=== PATIENT | male | born 1930 | race Caucasian/White ===

== ENCOUNTER 2016-10-04 07:03 | Emergency (ER) | payer MEDICARE ==
[2016-10-04 07:10] VITALS: RESP 18
[2016-10-04] MEDS ORDERED: ACETAMINOPHEN TAB 325 MG TAB PO STA (07:29)
[2016-10-04] MEDS ORDERED: MORPHINE SULFATE 2 MG/ML SYRINGE IVP ONE (07:35)
[2016-10-04] MEDS ORDERED: LABETALOL 5 MG/ML VIAL MDV IVP STA (07:36)
[2016-10-04] MEDS ORDERED: CARBIDOPA-LEVODOPA ER 50-200MG 1 EACH TABLET.ER PO STA (07:37)
[2016-10-04 08:14] LABS: Aty Lym Flag Slight; CH 31.9; CHCM 36.4; HCT 41.6 % (39.0-53.0); HDW 2.74; HGB 15.2 gm/dL (13.0-17.5); MCH 32.1 pg (25.0-35.0); MCHC 36.5 g/dL (31.0-37.0); MCV 87.9 fL (80.0-100.0); Mean Platelet Volume 8.7; RBC 4.73 m/uL (4.30-5.90); RDW 12.4 % (11.5-15.5); WBC 3.4 k/uL (3.8-10.6)
[2016-10-04 08:18] LABS: Anion Gap 10 mmol/L; Blood Urea Nitrogen 13 mg/dL (9-20); Calcium 9.3 mg/dL (8.4-10.2); Carbon Dioxide 25 mmol/L (22-30); Chloride 105 mmol/L (98-107); Glucose 292 mg/dL (74-99); Non-African American GFR(MDRD) >60 (>60 ml/min/1.73 sqM); Potassium 5.3 mmol/L (3.5-5.1); Sodium 140 mmol/L (137-145)
[2016-10-04 08:30] LABS: Add Differential Manual Differential
[2016-10-04 08:32] LABS: Nucleated Red Blood Cells 0 /100 WBC (0-0); Polychromasia Present; Total Cells Counted 100
[2016-10-04] MEDS ORDERED: KETOROLAC 30 MG/ML 1 ML VIAL IVP STA (08:56)
--- NOTE | 2016-10-04 09:09 | ED ---
Eye Problem HPI - General Chief complaint: Eye Problems Stated complaint: rt eye pain Time Seen by Provider: 10/04/16 07:08 Source: EMS Mode of arrival: EMS Limitations: no limitations - History of Present Illness Initial comments: Complaining about the right leg pain, it started last night he denies any trauma or any fall or any injury to the eye and a chance to discuss that with his son and he said he has very similar complaints 2 years ago and he seen secondary set up man or secondary set up man thought it was as migraines. Patient has seen secondary set up man a week ago. His vision is okay there is no deficits in the vision. His complaining about pain on the right temporal area him in review of system is unremarkable otherwise - Related Data Home Medications Medication Instructions Recorded Confirmed Insulin Glargine [Lantus] 28 unit SQ HS@1800 09/14/13 10/04/16 Methylphenidate HCl [Ritalin] 40 mg PO AC-BID 09/14/13 10/04/16 metFORMIN HCL [Glucophage] 1,000 mg PO AC-BRKFST 09/14/13 10/04/16 Omeprazole [PriLOSEC] 20 mg PO AC-LUNCH 12/17/15 10/04/16 Silodosin [Rapaflo] 8 mg PO AC-SUPPER 12/17/15 10/04/16 Atenolol 25 mg PO W/LUNCH 10/04/16 10/04/16 Carbidopa-Levodopa ER 50-200Mg 1 tab PO BID 10/04/16 10/04/16 [Sinemet ER 50-200] Isosorbide Mononitrate ER [Imdur] 60 mg PO DAILY 10/04/16 10/04/16 glipiZIDE [Glucotrol] 2.5 mg PO AC-BID 10/04/16 10/04/16 Allergies Allergy/AdvReac Type Severity Reaction Status Date / Time Penicillins Allergy Unknown Verified 10/04/16 10:01 Review of Systems ROS Statement: Those systems with pertinent positive or pertinent negative responses have been documented in the HPI. ROS Other: All systems not noted in ROS Statement are negative. 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,SKIN CANCER, STOAMCH ULCERS 40 YERS AGO History of Any Multi-Drug Resistant Organisms: None Reported Past Surgical History: Adenoidectomy, Appendectomy, Coronary Bypass/CABG, Heart Catheterization With Stent, Orthopedic Surgery, Tonsillectomy Additional Past Surgical History / Comment(s): RT KNEE SX ON CATILAGE, TAY CATARACTS Past Anesthesia/Blood Transfusion Reactions: No Reported Reaction Date of Last Stent Placement:: 2005 Past Psychological History: No Psychological Hx Reported Additional Psychological History / Comment(s): PT LIVES AT [facility], GETS AROUND WITH A 4 PORNG CANE Smoking Status: Former smoker Past Alcohol Use History: Occasional Additional Past Alcohol Use History / Comment(s): STARTED SMOKING AROUND AGE 13 , QUIT IN THE S Past Drug Use History: None Reported - Past Family History Father Family Medical History: Cancer, CVA/TIA Additional Family Medical History / Comment(s): SERIES OF STROKES. AT AGE 95 Mother Family Medical History: Congestive Heart Failure (CHF) Additional Family Medical History / Comment(s): AT AGE 95 CHF General Exam - General Exam Comments Initial Comments: General: The patient is awake and alert, in no distress, he was anxious on arrival Skin: Skin is warm and dry and no rashes or lesions are noted. Eye: Pupils are equal, round and reactive to light, extra-ocular movements are intact; there is normal conjunctiva bilaterally. He has some spots on the cornea those are bilateral these are quite symmetrical Ears, nose, mouth and throat: He is tender over the right temporal area Neck: The neck is supple, there is no tenderness or JVD. Cardiovascular: There is a regular rate and rhythm. No murmur, rub or gallop is appreciated. Respiratory: To auscultation bilateral, no wheezing no rhonchi no distress respiratory osborn noticed Gastrointestinal: Soft, non-distended, non-tender abdomen without masses or organomegaly noted. There is no rebound or guarding present. Bowel sounds are unremarkable. Back: There is no tenderness to palpation in the midline. There is no obvious deformity. Musculoskeletal: Normal ROM, no tenderness, There is no pedal edema. There is no calf tenderness or swelling. No cords were appreciated. Neurological: CN II-XII intact, Cranial nerves III through XII are intact. There are no obvious motor or sensory deficits. Coordination appears grossly intact. Speech is normal. Psychiatric: Cooperative, appropriate mood & affect, normal judgment. Limitations: no limitations Course Vital Signs 10/04/16 10/04/16 10/04/16 07:06 08:10 08:53 Temperature 97.4 F L Pulse Rate 68 60 60 Respiratory 18 18 18 Rate Blood Pressure 227/94 103/59 136/61 O2 Sat by Pulse 99 96 97 Oximetry 10/04/16 10:00 Temperature Pulse Rate 62 Respiratory 18 Rate Blood Pressure 146/65 O2 Sat by Pulse [address] [facility], I spoke with Dr. Nela today in Dr. Palomo agreed to see him 8:30 AM tomorrow morning - Reevaluation(s) Reevaluation #1: 10/04/16 10:47 Blood work and imaging was negative, I informed patient his son about it and now I spoke with the Dr. Jansen though he is not communication signals intelligence today. Patient has seen him in the past and he is his secondary set up man he agreed to see him 8:30 tomorrow morning that B Wednesday and patient is aware and agrees to see him Reevaluation #2: 10/04/16 09:42 Intraocular pressure in the right eye was 18 Medical Decision Making - Lab Data Result diagrams: 10/04/16 07:42 10/04/16 07:42 Lab Results 10/04/16 10/04/16 10/04/16 Range/Units 07:42 07:42 09:55 WBC 3.4 L (3.8-10.6) k/uL RBC 4.73 (4.30-5.90) m/uL Hgb 15.2 (13.0-17.5) gm/dL Hct 41.6 (39.0-53.0) % MCV 87.9 (80.0-100.0) fL MCH 32.1 (25.0-35.0) pg MCHC 36.5 (31.0-37.0) g/dL RDW 12.4 (11.5-15.5) % Plt Count 141 L (150-450) k/uL Neutrophils % (Manual) 59.0 % Lymphocytes % (Manual) 23.0 % Monocytes % (Manual) 18.0 % Neutrophils # (Manual) 2.0 (1.3-7.7) k/uL Lymphocytes # (Manual) 0.8 L (1.0-4.8) k/uL Monocytes # (Manual) 0.6 (0-1.0) k/uL Nucleated RBCs 0 (0-0) /100 WBC Polychromasia Present ESR 8 (0-15) mm/hr Sodium 140 (137-145) mmol/L Potassium 5.3 H (3.5-5.1) mmol/L Chloride 105 (98-107) mmol/L Carbon Dioxide 25 (22-30) mmol/L Anion Gap 10 mmol/L BUN 13 (9-20) mg/dL Creatinine 0.69 (0.66-1.25) mg/dL Est GFR (MDRD) Af Amer >60 (>60 ml/min/1.73 sqM) Est GFR (MDRD) Non-Af >60 (>60 ml/min/1.73 sqM) Glucose 292 H (74-99) mg/dL Calcium 9.3 (8.4-10.2) mg/dL Disposition Clinical Impression: Pain in right eye Disposition: HOME SELF-CARE Condition: Fair Referrals: Espinoza Bartlett MD [Primary Care Provider] - 1-2 days Sunny Neal MD [STAFF PHYSICIAN] - 1-2 days
--- NOTE | 2016-10-04 09:12 | CT ---
EXAMINATION TYPE: CT brain wo con, CT orbits wo con DATE OF EXAM: 10/04/2016 HISTORY: Headache with severe pain right eye CT DLP: 978.20 (accession [id number]), 263.40 (accession [id number]) mGycm. Automated Exposure Control f or Dose Reduction was Utilized. TECHNIQUE: CT scan of the head and orbits are performed without contrast. COMPARISON: CT brain December 17, 2015. FINDINGS: There is no acute intracranial hemorrhage or midline shift identified. There is diffuse v entricular and sulcal prominence consistent with diffuse age-related cerebral atrophy. Degree of vent ricular dilatation is out of proportion to degree of sulcal effacement or normal pressure hydrocephal us is not excluded. Ventricular size is however noted not significantly worsened versus prior study. Prominent extra-axial fluid anterior left temporal region could reflect arachnoid cyst or asymmetric atrophy is stable. There is low-attenuation in the periventricular white matter consistent with chron ic small vessel ischemic change. The calvarium is intact. Some calcification of right lens is redemonstrated, suspect possible cataract. Orbital floors and wal ls are intact. The globes are intact bilaterally. Intraconal fat is preserved. Rectus muscles are sym metric and felt within normal limits. IMPRESSION: No acute intracranial hemorrhage or midline shift. There is moderate to severe diffuse age-related cerebral atrophy and chronic small vessel ischemic change redemonstrated. No significant new finding is seen to account for patient's symptoms.
[2016-10-04 10:59] VITALS: BP 145/70; PULSE 67
[2016-10-04 11:04] VITALS: TEMP 98.6
== END 2016-10-04 11:09 | disposition home or self-care (01) ==
LOC: EC 07:03
DX: H57.11 Ocular pain, right eye (principal); I10 Essential (primary) hypertension; I25.10 Atherosclerotic heart disease of native coronary artery without angina pectoris; E11.9 Type 2 diabetes mellitus without complications; K21.9 Gastro-esophageal reflux disease without esophagitis; Z87.891 Personal history of nicotine dependence; Z79.4 Long term (current) use of insulin; Z79.84 Long term (current) use of oral hypoglycemic drugs; Z79.899 Other long term (current) drug therapy; Z88.0 Allergy status to penicillin
CPT/HCPCS: 99284 ×2; 96374 ×2; 96375 ×3; 36415; 80048; 85652; 85025; 70450; 70480; J1885; J2270

== ENCOUNTER 2016-10-19 15:06 | Inpatient (IN) | payer MEDICARE ==
[2016-10-19] MEDS ORDERED: SODIUM CHLORIDE 0.9% 1,000 ML IV STA (15:11)
[2016-10-19] MEDS ORDERED: SODIUM CHLORIDE 0.9% 500 ML IV STA (15:11)
[2016-10-19] MEDS ORDERED: RX INFO: IV CONTRAST WAS GIVEN 1 EACH MISC MISCELLANE PRN ×2 (15:11→16:20)
[2016-10-19] MEDS ORDERED: ONDANSETRON 4 MG/2 ML VIAL IVP STA (15:11)
--- NOTE | 2016-10-19 15:13 | ED ---
General Adult HPI <Kemal Valerio - Last Filed: 10/19/16 18:07> - General Source: RN notes reviewed, old records reviewed <Juarez Best - Last Filed: 10/20/16 13:25> - General Stated complaint: bradycardia Time Seen by Provider: 10/19/16 15:11 - History of Present Illness Initial comments: This is a 78-year-old male the ER for evaluation. Patient coming in for evaluation of severe*distress, severe overall distress. Patient has significant heart history, presented to urgent care for nausea and vomiting and abdominal pain but more nausea today. No fever or chest pain. Patient was noted to be hypoxic and bradycardic with a low blood pressure per facility. Patient no syncopal event. Patient still complaining of abdominal pain and nausea. No recent sickness fevers nausea vomiting or diarrhea. (Juarez Best) - Related Data Home Medications Medication Instructions Recorded Confirmed Insulin Glargine [Lantus] 28 unit SQ HS@1800 09/14/13 10/19/16 Methylphenidate HCl [Ritalin] 40 mg PO AC-BID 09/14/13 10/19/16 metFORMIN HCL [Glucophage] 1,000 mg PO AC-BRKFST 09/14/13 10/19/16 Omeprazole [PriLOSEC] 20 mg PO AC-LUNCH 12/17/15 10/19/16 Silodosin [Rapaflo] 8 mg PO AC-SUPPER 12/17/15 10/19/16 Atenolol 25 mg PO W/LUNCH 10/04/16 10/19/16 Carbidopa-Levodopa ER 50-200Mg 1 tab PO BID 10/04/16 10/19/16 [Sinemet ER 50-200] Isosorbide Mononitrate ER [Imdur] 60 mg PO DAILY 10/04/16 10/19/16 glipiZIDE [Glucotrol] 2.5 mg PO AC-BID 10/04/16 10/19/16 Diclofenac 0.1% Ophth Soln 1 drop RIGHT EYE BID 10/19/16 10/19/16 [Voltaren 0.1% Ophth Soln] Lactulose [Constulose] 10 gm PO BID PRN 10/19/16 10/19/16 Latanoprost [Xalatan 0.005%] 1 drop RIGHT EYE HS 10/19/16 10/19/16 Linaclotide [Linzess] 145 mcg PO DAILY 10/19/16 10/19/16 Allergies Allergy/AdvReac Type Severity Reaction Status Date / Time Penicillins Allergy Unknown Verified 10/19/16 15:54 Review of Systems ROS Other: All systems not noted in ROS Statement are negative. <Kemal Valerio - Last Filed: 10/19/16 18:07> ROS Other: All systems not noted in ROS Statement are negative. <Juarez Best - Last Filed: 10/20/16 13:25> ROS Statement: Those systems with pertinent positive or pertinent negative responses have been documented in the HPI. 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,SKIN CANCER, STOAMCH ULCERS 40 YERS AGO History of Any Multi-Drug Resistant Organisms: None Reported Past Surgical History: Adenoidectomy, Appendectomy, Coronary Bypass/CABG, Heart Catheterization With Stent, Orthopedic Surgery, Tonsillectomy Additional Past Surgical History / Comment(s): RT KNEE SX ON CATILAGE, TAY CATARACTS Past Anesthesia/Blood Transfusion Reactions: No Reported Reaction Date of Last Stent Placement:: 2005 Past Psychological History: No Psychological Hx Reported Additional Psychological History / Comment(s): PT [facility], GETS AROUND WITH A 4 PORNG CANE Smoking Status: Former smoker Past Alcohol Use History: Occasional Additional Past Alcohol Use History / Comment(s): STARTED SMOKING AROUND AGE 13 , QUIT IN THE 1970'S Past Drug Use History: None Reported - Past Family History Father Family Medical History: Cancer, CVA/TIA Additional Family Medical History / Comment(s): SERIES OF STROKES. AT AGE 95 Mother Family Medical History: Congestive Heart Failure (CHF) Additional Family Medical History / Comment(s): AT AGE 95 CHF <Juarez Best - Last Filed: 10/20/16 13:25> General Exam General appearance: alert, anxious, lethargic, in distress, cachectic Head exam: Present: atraumatic, normocephalic, normal inspection Eye exam: Present: normal appearance, PERRL, EOMI. Absent: scleral icterus, conjunctival injection, periorbital swelling ENT exam: Present: normal exam, mucous membranes dry Neck exam: Present: normal inspection. Absent: tenderness, meningismus, lymphadenopathy Respiratory exam: Present: normal lung sounds bilaterally. Absent: respiratory distress, wheezes, rales, rhonchi, stridor Cardiovascular Exam: Present: normal rhythm, bradycardia, normal heart sounds. Absent: systolic murmur, diastolic murmur, rubs, gallop, clicks GI/Abdominal exam: Present: soft, normal bowel sounds. Absent: distended, tenderness, guarding, rebound, rigid Extremities exam: Present: normal inspection, full ROM, normal capillary refill. Absent: tenderness, pedal edema, joint swelling, calf tenderness Back exam: Present: normal inspection Neurological exam: Present: alert, oriented X3, CN II-XII intact Psychiatric exam: Present: normal affect, normal mood Skin exam: Present: warm, dry, intact, normal color. Absent: rash <Juarez Best - Last Filed: 10/20/16 13:25> Course <Kemal Valerio - Last Filed: 10/19/16 18:07> <Juarez Best - Last Filed: 10/20/16 13:25> Vital Signs 10/19/16 10/19/16 10/19/16 15:08 15:40 16:35 Temperature 97.4 F L Pulse Rate 67 79 89 Respiratory 18 18 14 Rate Blood Pressure 141/66 160/85 163/97 O2 Sat by Pulse 100 100 99 Oximetry 10/19/16 10/19/16 18:01 19:11 Temperature 96.8 F L Pulse Rate 112 H 106 H Respiratory 19 18 Rate Blood Pressure 134/70 171/86 O2 Sat by Pulse 100 100 Oximetry - Reevaluation(s) Reevaluation #1: 10/19/16 15:51 Patient had significant bowel movement, resolution of nausea resolution of abdominal pain and resolution of vomiting (Juarez Best) EKG Findings - EKG Comments: EKG Findings:: EKG shows sinus rhythm at 64, OH 180, QRS 116, QTc 476 <Juarez Best - Last Filed: 06/27/17 13:25> Medical Decision Making - Lab Data Result diagrams: 10/19/16 15:15 10/19/16 15:15 <Kemal Valerio - Last Filed: 10/19/16 18:07> - Lab Data Result diagrams: 10/20/16 06:55 10/20/16 06:55 - Radiology Data Radiology results: report reviewed (CTA chest CT abdomen and pelvis negative for PE positive for possible mass in long, severe constipation), image reviewed <Juarez Best - Last Filed: 10/20/16 13:25> - Medical Decision Making 88 mailed a year figuration near syncopal event, severe constipation, dehydration lactic acidosis. Patient be admitted for further evaluation and management, (Juarez Best) - Lab Data Lab Results 10/19/16 10/19/16 10/19/16 Range/Units 15:12 15:15 15:15 WBC 5.3 (3.8-10.6) k/uL RBC 4.49 (4.30-5.90) m/uL Hgb 14.7 (13.0-17.5) gm/dL Hct 41.3 (39.0-53.0) % MCV 92.0 (80.0-100.0) fL MCH 32.7 (25.0-35.0) pg MCHC 35.6 (31.0-37.0) g/dL RDW 12.4 (11.5-15.5) % Plt Count 225 (150-450) k/uL Neutrophils % 56 % Lymphocytes % 25 % Monocytes % 13 % Eosinophils % 1 % Basophils % 0 % Neutrophils # 3.0 (1.3-7.7) k/uL Lymphocytes # 1.3 (1.0-4.8) k/uL Monocytes # 0.7 (0-1.0) k/uL Eosinophils # 0.0 (0-0.7) k/uL Basophils # 0.0 (0-0.2) k/uL Manual Slide Review Performed Reactive Lymphocytes Present Large Platelets Present Ovalocytes Present Fragmented RBCs Present PT (9.0-12.0) sec INR (<1.1) APTT (22.0-30.0) sec D-Dimer (<0.60) mg/L FEU Sodium (137-145) mmol/L Potassium (3.5-5.1) mmol/L Chloride (98-107) mmol/L Carbon Dioxide (22-30) mmol/L Anion Gap mmol/L BUN (9-20) mg/dL Creatinine (0.66-1.25) mg/dL Est GFR (MDRD) Af Amer (>60 ml/min/1.73 sqM) Est GFR (MDRD) Non-Af (>60 ml/min/1.73 sqM) Glucose (74-99) mg/dL POC Glucose (mg/dL) 344 H (75-99) mg/dL POC Glu Icu Manager ID Ruel Frank Plasma Lactic Acid Sudarshan (0.7-2.0) mmol/L Calcium (8.4-10.2) mg/dL Phosphorus (2.5-4.5) mg/dL Magnesium (1.6-2.3) mg/dL Total Bilirubin (0.2-1.3) mg/dL AST (17-59) U/L ALT (21-72) U/L Alkaline Phosphatase (38-126) U/L Total Creatine Kinase 40 L (55-170) U/L CK-MB (CK-2) 1.2 (0.0-2.4) ng/mL CK-MB (CK-2) Rel Index 3.0 Troponin I <0.012 (0.000-0.034) ng/mL NT-Pro-B Natriuret Pep pg/mL Total Protein (6.3-8.2) g/dL Albumin (3.5-5.0) g/dL Urine Color Urine Appearance (Clear) Urine pH (5.0-8.0) Ur Specific [place] (1.001-1.035) Urine Protein (Negative) Urine Glucose (UA) (Negative) Urine Ketones (Negative) Urine Blood (Negative) Urine Nitrite (Negative) Urine Bilirubin (Negative) Urine Urobilinogen (<2.0) mg/dL Ur Leukocyte Esterase (Negative) 10/19/16 10/19/16 10/19/16 Range/Units 15:15 15:15 15:15 WBC (3.8-10.6) k/uL RBC (4.30-5.90) m/uL Hgb (13.0-17.5) gm/dL Hct (39.0-53.0) % MCV (80.0-100.0) fL MCH (25.0-35.0) pg MCHC (31.0-37.0) g/dL RDW (11.5-15.5) % Plt Count (150-450) k/uL Neutrophils % % Lymphocytes % % Monocytes % % Eosinophils % % Basophils % % Neutrophils # (1.3-7.7) k/uL Lymphocytes # (1.0-4.8) k/uL Monocytes # (0-1.0) k/uL Eosinophils # (0-0.7) k/uL Basophils # (0-0.2) k/uL Manual Slide Review Reactive Lymphocytes Large Platelets Ovalocytes Fragmented RBCs PT 11.3 (9.0-12.0) sec INR 1.1 (<1.1) APTT 21.3 L (22.0-30.0) sec D-Dimer 0.98 H (<0.60) mg/L FEU Sodium 140 (137-145) mmol/L Potassium 4.4 (3.5-5.1) mmol/L Chloride 103 (98-107) mmol/L Carbon Dioxide 26 (22-30) mmol/L Anion Gap 11 mmol/L BUN 21 H (9-20) mg/dL Creatinine 0.99 (0.66-1.25) mg/dL Est GFR (MDRD) Af Amer >60 (>60 ml/min/1.73 sqM) Est GFR (MDRD) Non-Af >60 (>60 ml/min/1.73 sqM) Glucose 359 H (74-99) mg/dL POC Glucose (mg/dL) (75-99) mg/dL POC Glu Icu Manager ID Plasma Lactic Acid Sudarshan 2.7 H* (0.7-2.0) mmol/L Calcium 9.0 (8.4-10.2) mg/dL Phosphorus 3.4 (2.5-4.5) mg/dL Magnesium 1.7 (1.6-2.3) mg/dL Total Bilirubin 0.8 (0.2-1.3) mg/dL AST 23 (17-59) U/L ALT 24 (21-72) U/L Alkaline Phosphatase 82 (38-126) U/L Total Creatine Kinase (55-170) U/L CK-MB (CK-2) (0.0-2.4) ng/mL CK-MB (CK-2) Rel Index Troponin I (0.000-0.034) ng/mL NT-Pro-B Natriuret Pep pg/mL Total Protein 6.3 (6.3-8.2) g/dL Albumin 3.8 (3.5-5.0) g/dL Urine Color Urine Appearance (Clear) Urine pH (5.0-8.0) Ur Specific [place] (1.001-1.035) Urine Protein (Negative) Urine Glucose (UA) (Negative) Urine Ketones (Negative) Urine Blood (Negative) Urine Nitrite (Negative) Urine Bilirubin (Negative) Urine Urobilinogen (<2.0) mg/dL Ur Leukocyte Esterase (Negative) 10/19/16 10/19/16 Range/Units 15:15 16:30 WBC (3.8-10.6) k/uL RBC (4.30-5.90) m/uL Hgb (13.0-17.5) gm/dL Hct (39.0-53.0) % MCV (80.0-100.0) fL MCH (25.0-35.0) pg MCHC (31.0-37.0) g/dL RDW (11.5-15.5) % Plt Count (150-450) k/uL Neutrophils % % Lymphocytes % % Monocytes % % Eosinophils % % Basophils % % Neutrophils # (1.3-7.7) k/uL Lymphocytes # (1.0-4.8) k/uL Monocytes # (0-1.0) k/uL Eosinophils # (0-0.7) k/uL Basophils # (0-0.2) k/uL Manual Slide Review Reactive Lymphocytes Large Platelets Ovalocytes Fragmented RBCs PT (9.0-12.0) sec INR (<1.1) APTT (22.0-30.0) sec D-Dimer (<0.60) mg/L FEU Sodium (137-145) mmol/L Potassium (3.5-5.1) mmol/L Chloride (98-107) mmol/L Carbon Dioxide (22-30) mmol/L Anion Gap mmol/L BUN (9-20) mg/dL Creatinine (0.66-1.25) mg/dL Est GFR (MDRD) Af Amer (>60 ml/min/1.73 sqM) Est GFR (MDRD) Non-Af (>60 ml/min/1.73 sqM) Glucose (74-99) mg/dL POC Glucose (mg/dL) (75-99) mg/dL POC Glu Icu Manager ID Plasma Lactic Acid Sudarshan (0.7-2.0) mmol/L Calcium (8.4-10.2) mg/dL Phosphorus (2.5-4.5) mg/dL Magnesium (1.6-2.3) mg/dL Total Bilirubin (0.2-1.3) mg/dL AST (17-59) U/L ALT (21-72) U/L Alkaline Phosphatase (38-126) U/L Total Creatine Kinase (55-170) U/L CK-MB (CK-2) (0.0-2.4) ng/mL CK-MB (CK-2) Rel Index Troponin I (0.000-0.034) ng/mL NT-Pro-B Natriuret Pep 279 pg/mL Total Protein (6.3-8.2) g/dL Albumin (3.5-5.0) g/dL Urine Color Yellow Urine Appearance Clear (Clear) Urine pH 6.5 (5.0-8.0) Ur Specific [place] 1.013 (1.001-1.035) Urine Protein Trace H (Negative) Urine Glucose (UA) 4+ H (Negative) Urine Ketones Negative (Negative) Urine Blood Negative (Negative) Urine Nitrite Negative (Negative) Urine Bilirubin Negative (Negative) Urine Urobilinogen <2.0 (<2.0) mg/dL Ur Leukocyte Esterase Negative (Negative) Critical Care Time Critical Care Time: Yes Total Critical Care Time: 31 <Juarez Best - Last Filed: 10/20/16 13:25> Disposition <Kemal Valerio - Last Filed: 10/19/16 18:07> <Juarez Best - Last Filed: 10/20/16 13:25> Clinical Impression: Near syncope, Lactic acidosis, Constipation, Hyperglycemia Disposition: [facility] Condition: Fair
[2016-10-19 15:21] LABS: Glucose,Whole Blood 344 mg/dL (75-99)
--- NOTE | 2016-10-19 15:33 | XR ---
EXAMINATION TYPE: XR chest 1V portable DATE OF EXAM: 10/19/2016 COMPARISON: December 17, 2015 HISTORY: Shortness of breath TECHNIQUE: Frontal and lateral views of the chest are obtained. FINDINGS: Scattered senescent parenchymal changes noted. Hyperinflation compatible with COPD. No evidence for infiltrate. Chronic elevation right hemidiaphragm with right basilar scarring and chr onic pleural thickening. Heart size is stable. Mediastinal structures are stable and grossly unremarkable. No evidence for hilar prominence. Degenerative changes dorsal spine. IMPRESSION: 1. No evidence for acute pulmonary disease.
[2016-10-19 15:49] LABS: Aty Lym Flag Slight; Basophils % (A) 0 %; CH 31.4; CHCM 34.3; Eosinophils % (A) 1 %; HCT 41.3 % (39.0-53.0); HDW 2.59; HGB 14.7 gm/dL (13.0-17.5); Luc # (Auto) 0.27; Luc % (Auto) 5; Lymphocytes # (A) 1.3 k/uL (1.0-4.8); Lymphocytes % (A) 25 %; MCH 32.7 pg (25.0-35.0); MCHC 35.6 g/dL (31.0-37.0); Mean Platelet Volume 8.7; Monocytes # (A) 0.7 k/uL (0-1.0); Monocytes % (A) 13 %; Neutrophils % (A) 56 %; RBC 4.49 m/uL (4.30-5.90); RDW 12.4 % (11.5-15.5); WBC 5.3 k/uL (3.8-10.6); WBC (Perox) 5.37
[2016-10-19 15:58] LABS: ALT 24 U/L (21-72); AST 23 U/L (17-59); Alkaline Phosphatase 82 U/L (38-126); Anion Gap 11 mmol/L; Blood Urea Nitrogen 21 mg/dL (9-20); Carbon Dioxide 26 mmol/L (22-30); Chloride 103 mmol/L (98-107); Glucose 359 mg/dL (74-99); INR 1.1 (<1.1); Magnesium 1.7 mg/dL (1.6-2.3); Non-African American GFR(MDRD) >60 (>60 ml/min/1.73 sqM); Phosphorous 3.4 mg/dL (2.5-4.5); Potassium 4.4 mmol/L (3.5-5.1); Prothrombin Time 11.3 sec (9.0-12.0); Sodium 140 mmol/L (137-145); Total Bilirubin 0.8 mg/dL (0.2-1.3); Total Protein 6.3 g/dL (6.3-8.2)
[2016-10-19 16:03] LABS: Creatine Kinase 40 U/L (55-170)
[2016-10-19 16:10] LABS: Partial Thromboplastin Time 21.3 sec (22.0-30.0)
[2016-10-19 16:14] LABS: Large Platelets Present; Manual Review Performed; Reactive Lymphocytes Present
[2016-10-19 16:15] LABS: Ovalocytes Present
[2016-10-19 16:17] LABS: Creatine Kinase MB 1.2 ng/mL (0.0-2.4); Troponin I <0.012 ng/mL (0.000-0.034)
[2016-10-19 17:14] LABS: Appearance,Urine Clear (Clear); Bilirubin,Urine Negative (Negative); Glucose,Urine (UA) 4+ (Negative); Ketones,Urine Negative (Negative); Leukocyte Esterase,Urine Negative (Negative); Nitrite,Urine Negative (Negative); PH, Urine 6.5 (5.0-8.0); Protein,Urine Trace (Negative); Specific Gravity,Urine 1.013 (1.001-1.035); UA Billing (MACRO vs. MICRO) CHEM; Urobilinogen,Urine <2.0 mg/dL (<2.0)
--- NOTE | 2016-10-19 17:33 | CT ---
EXAMINATION TYPE: CT angio chest DATE OF EXAM: 10/19/2016 5:23 PM COMPARISON: NONE HISTORY: abdominal pain, nausea, bradycardia CT DLP: 544.54 mGycm Automated exposure control for dose reduction was used. CONTRAST: CTA scan of the thorax is performed with IV Contrast, patient injected with 100 mL of Omnipaque 350, pulmonary embolism protocol. There are 3-D post processed images.. FINDINGS: Thoracic aorta is atheromatous. Ascending aorta measures 3.4 cm. There is no evidence of aortic disse ction. There is a right pleural effusion with some consolidation and atelectasis at the right lung ba se. The left lung is clear of infiltrate. There is no pericardial effusion. There is normal contrast opacification of the pulmonary arteries. I see no filling defect. There is n o mediastinal adenopathy. There are no hilar masses. IMPRESSION: NO EVIDENCE OF PULMONARY EMBOLISM. CONSOLIDATION AND ATELECTASIS IN THE RIGHT LOWER LOBE WITH RIGHT P LEURAL EFFUSION. ATHEROSCLEROTIC VASCULAR DISEASE.
--- NOTE | 2016-10-19 17:39 | CT ---
EXAMINATION TYPE: CT abdomen pelvis w con DATE OF EXAM: 10/19/2016 COMPARISON: NONE HISTORY: abdominal pain, nausea, bradycardia CT DLP: 1240.4 mGycm Automated exposure control for dose reduction was used. TECHNIQUE: Helical acquisition of images was performed from the lung bases through the pelvis. CONTRAST: Performed without Oral Contrast and with IV Contrast, patient injected with 100 mL of Omnipaque 350. FINDINGS: There is right pleural effusion with some pleural thickening and consolidation and atelectasis in the right lower lobe. Heart is enlarged. Liver shows no focal defect. Bile ducts are not dilated. Gallbladder appears normal. Spleen appears n ormal. There is some mild pleural thickening and atelectasis at the left lung base. There is no pancreatic mass. There is no adrenal mass. Kidneys show satisfactory contrast opacification. There is no hydronephrosi s. Ureters are not dilated. Abdominal aorta is atheromatous. Bladder distends smoothly. There is no r etroperitoneal adenopathy. There is atherosclerotic plaque in the abdominal aorta. There is mild aneu rysm of the lower abdominal aorta that measures up to 3.3 cm. There is no ascites. There is no sign o f appendicitis. I see no intestinal wall thickening. There are spondylotic changes in the lumbar spin e. I see no compression fracture. There is retained fecal material in the rectum.: IMPRESSION: CONSTIPATION. 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 MILDLY DILATED URINARY BLADDER THAT MEASURES 14 CM IN LE NGTH CONSISTENT WITH SOME DEGREE OF BLADDER OUTLET OBSTRUCTION. THERE IS A 3 X 2.5 CM AREA OF MASSLIKE CONSOLIDATION THE POSTERIOR RIGHT LOWER LOBE ADJACENT TO THE P LEURAL FLUID. THIS IS MOST LIKELY INFLAMMATORY DISEASE BUT FOLLOW-UP IS RECOMMENDED TO SHOW LONG-TERM STABILITY OR CLEARING.
[2016-10-19] MEDS ORDERED: NALOXONE 0.4 MG/ML 1 ML VIAL IV PRN (17:53)
[2016-10-19] MEDS: SODIUM CHLORIDE 0.9% 1,000 ML IV SCH (18:12)
[2016-10-19] MEDS ORDERED: LEVOFLOXACIN 750MG-D5W PMX 750 MG in DEXTROSE/WATER 1 150ML.BAG IVPB STA (18:32)
[2016-10-19 18:54] LABS: Glucose,Whole Blood 423 mg/dL (75-99)
[2016-10-19] MEDS ORDERED: INSULIN REGULAR 100 UNIT/ML VIAL SQ STA (18:55)
[2016-10-19 20:42] LABS: Glucose,Whole Blood 303 mg/dL (75-99)
[2016-10-19] MEDS: INSULIN LISPRO (humaLOG) 300 UNIT/3 ML VIAL SQ SCH (20:48)
[2016-10-19 21:21] LABS: Hemoglobin A1C 9.9 % (4.2-6.1)
[2016-10-19] MEDS ORDERED: LACTULOSE 200 GM/300 ML (FROM 1/2 GAL JUG) PO PRN (21:54)
[2016-10-19] MEDS: INSULIN GLARGINE 100 UNIT/ML 10 ML VIAL SQ SCH (22:58)
[2016-10-19] MEDS: CARBIDOPA-LEVODOPA ER 50-200MG 1 EACH TABLET.ER PO SCH (22:58)
[2016-10-19 23:44] VITALS: BMI 24.7
[2016-10-19 23:56] LABS: Glucose,Whole Blood 90 mg/dL (75-99)
[2016-10-20 02:13] LABS: Glucose,Whole Blood 137 mg/dL (75-99)
[2016-10-20 07:46] LABS: ALT 15 U/L (21-72); AST 17 U/L (17-59); Alkaline Phosphatase 66 U/L (38-126); Anion Gap 8 mmol/L; Aty Lym Flag Slight; Blood Urea Nitrogen 16 mg/dL (9-20); CH 31.6; CHCM 34.6; Calcium 8.4 mg/dL (8.4-10.2); Carbon Dioxide 26 mmol/L (22-30); Chloride 107 mmol/L (98-107); Glucose 119 mg/dL (74-99); HGB 13.1 gm/dL (13.0-17.5); MCH 31.7 pg (25.0-35.0); MCHC 34.6 g/dL (31.0-37.0); MCV 91.7 fL (80.0-100.0); Mean Platelet Volume 8.3; Non-African American GFR(MDRD) >60 (>60 ml/min/1.73 sqM); Potassium 3.7 mmol/L (3.5-5.1); RBC 4.14 m/uL (4.30-5.90); RDW 12.7 % (11.5-15.5); Sodium 141 mmol/L (137-145); Total Bilirubin 0.7 mg/dL (0.2-1.3); Total Protein 5.4 g/dL (6.3-8.2); WBC 5.1 k/uL (3.8-10.6); WBC (Perox) 4.99
[2016-10-20 08:01] LABS: Glucose,Whole Blood 107 mg/dL (75-99)
[2016-10-20] MEDS: INSULIN LISPRO (humaLOG) 300 UNIT/3 ML VIAL SQ SCH ×4 (08:07→21:01)
[2016-10-20] MEDS: CARBIDOPA-LEVODOPA ER 50-200MG 1 EACH TABLET.ER PO SCH ×2 (08:09→21:00)
[2016-10-20 08:10] LABS: Add Differential Manual Differential
[2016-10-20 08:13] LABS: Manual Review Performed; Nucleated Red Blood Cells 0 /100 WBC (0-0); Total Cells Counted 100
[2016-10-20] MEDS ORDERED: CARBIDOPA-LEVODOPA ER 50-200MG 1 EACH TABLET.ER PO SCH (09:00)
[2016-10-20 11:54] LABS: Glucose,Whole Blood 182 mg/dL (75-99)
[2016-10-20] MEDS ORDERED: METHYLPHENIDATE HCL 10 MG TAB PO STA (15:26)
[2016-10-20 16:52] LABS: Glucose,Whole Blood 254 mg/dL (75-99)
[2016-10-20] MEDS ORDERED: TAMSULOSIN 0.4 MG CAP.ER.24H PO SCH (17:30)
[2016-10-20] MEDS ORDERED: INSULIN GLARGINE 100 UNIT/ML 10 ML VIAL SQ SCH (18:00)
[2016-10-20] MEDS: INSULIN GLARGINE 100 UNIT/ML 10 ML VIAL SQ SCH (18:12)
[2016-10-20] MEDS: SODIUM CHLORIDE 0.9% 1,000 ML IV SCH (18:13)
[2016-10-20] MEDS: LEVOFLOXACIN 750MG-D5W PMX 750 MG in DEXTROSE/WATER 1 150ML.BAG IVPB SCH (18:15)
[2016-10-20 20:54] LABS: Glucose,Whole Blood 109 mg/dL (75-99)
[2016-10-20] MEDS: DICLOFENAC 0.1% OPHTH SOLN 2.5 ML BTL RIGHT EYE SCH (21:00)
[2016-10-20] MEDS: LATANOPROST 0.005% OPHTH DROPS 2.5 ML BTL RIGHT EYE SCH (21:00)
[2016-10-21 07:11] LABS: Basophils % (A) 0 %; CH 31.7; CHCM 35.4; Eosinophils % (A) 1 %; HCT 38.8 % (39.0-53.0); HDW 2.58; HGB 13.4 gm/dL (13.0-17.5); Luc # (Auto) 0.18; Luc % (Auto) 4; Lymphocytes # (A) 0.5 k/uL (1.0-4.8); Lymphocytes % (A) 12 %; MCH 30.9 pg (25.0-35.0); MCHC 34.5 g/dL (31.0-37.0); MCV 89.7 fL (80.0-100.0); Mean Platelet Volume 9.1; Monocytes # (A) 0.6 k/uL (0-1.0); Monocytes % (A) 15 %; Neutrophils # (A) 2.7 k/uL (1.3-7.7); Neutrophils % (A) 67 %; RBC 4.32 m/uL (4.30-5.90); RDW 12.5 % (11.5-15.5); WBC (Perox) 4.22
[2016-10-21 07:37] LABS: Glucose,Whole Blood 59 mg/dL (75-99)
[2016-10-21 07:44] LABS: Anion Gap 9 mmol/L; Blood Urea Nitrogen 14 mg/dL (9-20); Calcium 8.6 mg/dL (8.4-10.2); Carbon Dioxide 28 mmol/L (22-30); Chloride 105 mmol/L (98-107); Glucose 73 mg/dL (74-99); Non-African American GFR(MDRD) >60 (>60 ml/min/1.73 sqM); Potassium 3.2 mmol/L (3.5-5.1); Sodium 142 mmol/L (137-145)
[2016-10-21 08:12] LABS: Glucose,Whole Blood 83 mg/dL (75-99)
[2016-10-21] MEDS: INSULIN LISPRO (humaLOG) 300 UNIT/3 ML VIAL SQ SCH ×4 (08:25→21:40)
[2016-10-21] MEDS: metFORMIN 500 MG TAB PO SCH (08:27)
[2016-10-21] MEDS: PANTOPRAZOLE 40 MG TABLET PO SCH (08:27)
[2016-10-21] MEDS: DICLOFENAC 0.1% OPHTH SOLN 2.5 ML BTL RIGHT EYE SCH ×2 (08:27→21:39)
[2016-10-21] MEDS: CARBIDOPA-LEVODOPA ER 50-200MG 1 EACH TABLET.ER PO SCH ×2 (08:27→21:39)
[2016-10-21] MEDS: METHYLPHENIDATE HCL 10 MG TAB PO SCH ×2 (08:31→12:39)
[2016-10-21] MEDS ORDERED: ISOSORBIDE MONONITRATE ER 60 MG TAB.ER.24H PO SCH (09:00)
[2016-10-21] MEDS ORDERED: NON-FORMULARY DRUG (Linaclotide [Linzess] 145 MCG) PO SCH (09:00)
[2016-10-21 12:13] LABS: Glucose,Whole Blood 141 mg/dL (75-99)
[2016-10-21] MEDS: SODIUM CHLORIDE 0.9% 1,000 ML IV SCH (15:38)
[2016-10-21 17:24] LABS: Glucose,Whole Blood 92 mg/dL (75-99)
[2016-10-21] MEDS: LEVOFLOXACIN 750MG-D5W PMX 750 MG in DEXTROSE/WATER 1 150ML.BAG IVPB SCH (18:05)
[2016-10-21] MEDS: INSULIN GLARGINE 100 UNIT/ML 10 ML VIAL SQ SCH (18:09)
[2016-10-21] MEDS ORDERED: TAMSULOSIN 0.4 MG CAP.ER.24H PO SCH (18:30)
[2016-10-21 20:51] LABS: Glucose,Whole Blood 181 mg/dL (75-99)
[2016-10-21] MEDS: FLUDROCORTISONE 0.1 MG TAB PO SCH (21:40)
[2016-10-21] MEDS: LATANOPROST 0.005% OPHTH DROPS 2.5 ML BTL RIGHT EYE SCH (21:40)
--- NOTE | 2016-10-21 22:47 | HP ---
CHIEF COMPLAINT: Presyncope and weakness. HISTORY OF PRESENT ILLNESS: This 86-year-old gentleman with a past medical history of CAD, diabetes mellitus, type 2, GERD, hypertension, hyperlipidemia, history of narcolepsy, cataplexy, history of TIA, history of CAD, CABG, stent, being followed by Dr. Bartlett in the outpatient setting, was apparently waiting for an appointment with Dr. Correa, machine shop helper. Apparently the family found the patient in the bathroom holding onto the rail. The patient apparently had abdominal discomfort and subsequently the patient's blood pressure was in the 80s. The patient also had subsequent multiple episodes of diarrhea after admission. The patient was admitted for further evaluation and treatment. There is no history of any fever, rigor or chills. No history of any loss of consciousness, seizures at this time. The patient had an abdomen/pelvis CT scan , the results of which are reviewed. 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 A 3 x 2.5 cm mass-like consolidation in the posterior right lobe adjacent to pleural fluid was also noted. The patient is being closely monitored. There is no history of any fever, rigor or chills. No history of headache at this time. PAST MEDICAL HISTORY: 1. History of CAD. 2. Diabetes mellitus, type 2. 3. History of GERD. 4. Hypertension. 5. Hyperlipidemia. 6. History of narcolepsy. 7. History of CAD, CABG. Medications prior to admission include: 1.Glucophage 1000 mg before breakfast. 2. Glucotrol 2.5 mg before meals b.i.d. 3. Rapiflo 8 mg before supper. 4. Prilosec 20 mg before lunch. 5. Ritalin 40 mg before meals b.i.d. 6. Linzess 145 mcg p.o. daily. 7. Xalatan 0.05% one drop right eye at bedtime. 8. Lactulose 10 grams p.o. b.i.d. p.r.n. 9. Imdur 60 mg p.o. daily. 10. Lantus 28 units subcutaneously at bedtime. 11. Voltaren 1 drop b.i.d. 12. Sinemet ER 50/200 one p.o. b.i.d. 13. Atenolol 25 mg with lunch. ALLERGIES: PENICILLIN. FAMILY HISTORY: History CVI, cancer in the family. SOCIAL HISTORY: Previous history of smoking. Occasional alcohol intake. REVIEW OF SYSTEMS: ENT: Diminished hearing. Diminished vision. CARDIOVASCULAR SYSTEM: No angina, palpitations. Otherwise as mentioned earlier. RESPIRATION: No cough, hemoptysis. GI: No nausea, vomiting. : No dysuria. NERVOUS SYSTEM: No numbness. Otherwise as mentioned earlier. ALLERGY/IMMUNOLOGY: No asthma, hayfever. MUSCULOSKELETAL: As mentioned earlier. HEMATOLOGY/ONCOLOGY: No history of anemia. ENDOCRINE: Diabetes mellitus. CONSTITUTIONAL: As mentioned earlier. DERMATOLOGY: Negative. RHEUMATOLOGY: Negative. PSYCHIATRIC: As mentioned earlier. PHYSICAL EXAM: Patient is alert and oriented x3. Pulse is 103, blood pressure 114/71, respiration 16, temperature 97.6, pulse ox 99% on 2 L. HEENT: Conjunctivae normal. Oral mucosa membrane dry. NECK: No jugular venous distention. No carotid bruit. No lymph node enlargement. CARDIOVASCULAR: S1, S2 muffled. No S3. No S4. RESPIRATORY: Breath sounds diminished at the bases. No rhonchi. No crackles. ABDOMEN: Soft, non-tender. No mass palpable. No hepatosplenomegaly. No ascites. Bowel sounds present. LEGS: No edema. No swelling. NERVOUS SYSTEM: Higher functions as mentioned earlier. Moves all 4 limbs. No focal motor or sensory deficit. LYMPHATICS: No lymph node palpable in neck, axillae or groins. SKIN: No ulcer, rash, bleeding. LABS: WBC 5.1, hemoglobin 13.1. Albumin 3.1. ASSESSMENT: 1. Presyncope with hypotension, possible dehydration. 2. Acute diarrheal disease. 3. 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 4. Degenerative joint disease. 5. A 3 x 2.5 cm area of mass-like consolidation on the posterior right lobe adjacent to the pleural fluid, most likely inflammatory disease. 6. Hypoalbuminemia with mild to moderate protein-calorie malnutrition. 7. Diabetes mellitus, type 2. 8. Coronary artery disease, CABG with stent. 9. History of gastroesophageal reflux disease. 10. Hypertension. 11. Hyperlipidemia. 12. History of narcolepsy and cataplexy. 13. History of transient ischemic attack. 14. History of appendectomy. 15. History of adenoidectomy. 16. History of cataracts. RECOMMENDATIONS AND DISCUSSION: I recommend to continue current medications, continue with the monitoring, symptomatic treatment. Otherwise, at this time we will monitor the patient closely. IV fluids. Will also check stool C difficile. Advance the diet. Continue to monitor. Further recommendations to follow. Guarded prognosis. See orders for further details. PT/OT evaluation. A copy of this dictation is being forwarded to Dr. Bartlett, who is the primary physician. MONSERRAT
[2016-10-21 23:54] VITALS: RESP 16
[2016-10-22 07:38] LABS: Basophils % (A) 0 %; CH 31.1; CHCM 34.8; Eosinophils % (A) 1 %; HCT 33.3 % (39.0-53.0); HGB 11.9 gm/dL (13.0-17.5); Luc # (Auto) 0.18; Luc % (Auto) 4; Lymphocytes # (A) 0.6 k/uL (1.0-4.8); Lymphocytes % (A) 15 %; MCH 32.1 pg (25.0-35.0); MCHC 35.7 g/dL (31.0-37.0); MCV 89.7 fL (80.0-100.0); Mean Platelet Volume 8.2; Monocytes # (A) 0.5 k/uL (0-1.0); Monocytes % (A) 13 %; Neutrophils # (A) 2.7 k/uL (1.3-7.7); Neutrophils % (A) 67 %; RBC 3.71 m/uL (4.30-5.90); RDW 12.4 % (11.5-15.5); WBC 4.1 k/uL (3.8-10.6); WBC (Perox) 4.44
[2016-10-22 07:49] LABS: Anion Gap 8 mmol/L; Blood Urea Nitrogen 11 mg/dL (9-20); Calcium 8.5 mg/dL (8.4-10.2); Carbon Dioxide 26 mmol/L (22-30); Chloride 107 mmol/L (98-107); Glucose 57 mg/dL (74-99); Non-African American GFR(MDRD) >60 (>60 ml/min/1.73 sqM); Potassium 3.3 mmol/L (3.5-5.1); Sodium 141 mmol/L (137-145)
[2016-10-22 08:09] LABS: Glucose,Whole Blood 59 mg/dL (75-99)
[2016-10-22] MEDS: INSULIN LISPRO (humaLOG) 300 UNIT/3 ML VIAL SQ SCH ×2 (08:15→11:42)
[2016-10-22] MEDS: metFORMIN 500 MG TAB PO SCH (08:15)
[2016-10-22] MEDS: PANTOPRAZOLE 40 MG TABLET PO SCH (08:18)
[2016-10-22] MEDS: CARBIDOPA-LEVODOPA ER 50-200MG 1 EACH TABLET.ER PO SCH (08:18)
[2016-10-22] MEDS: FLUDROCORTISONE 0.1 MG TAB PO SCH (08:18)
[2016-10-22] MEDS: DICLOFENAC 0.1% OPHTH SOLN 2.5 ML BTL RIGHT EYE SCH (08:19)
[2016-10-22] MEDS: METHYLPHENIDATE HCL 10 MG TAB PO SCH ×2 (08:21→11:50)
[2016-10-22 08:30] LABS: Glucose,Whole Blood 74 mg/dL (75-99)
[2016-10-22 08:43] VITALS: BP 108/53; TEMP 97.6
[2016-10-22 08:46] VITALS: PULSE 103
[2016-10-22] MEDS ORDERED: ISOSORBIDE MONONITRATE ER 30 MG TAB.ER.24H PO SCH (09:00)
[2016-10-22 11:31] LABS: Glucose,Whole Blood 129 mg/dL (75-99)
--- NOTE | 2016-10-24 07:29 | PN ---
DATE OF SERVICE: 10/21/2016 This 86 year old gentleman admitted with presyncope, also suspected of right lower lobe pneumonia also. The patient also had vomiting and ( ) present on admission. No chest pain. No palpitations. No fever. REVIEW OF SYSTEM: Cardiovascular: No angina or palpitations. Respiratory: As mentioned. GI: As mentioned. : No dysuria. Nervous system: No numbness, weakness. Current medications are: 1. Sinemet one p.o. b.i.d. 2. Voltaren. 3. Glucotrol 2.5 mg. 4. Lantus 20 units subcu q.h.s. 5. Humalog to scale. 6. Imdur 60 mg. 7. Xalatan. 8. Levaquin. 9. Glucophage. 10. Ritalin. 11. Narcan. 12. Protonix. 13. Flomax. On exam, alert and oriented times three. Pulse 104. Blood pressure 123/65. Orthostatic changes presented. Respiratory rate 16. Temperature 97.4. Pulse ox 99% on room air. HEENT: Conjunctivae normal. NECK: No JVD. CVS: S1, S2 muffled. RESPIRATORY: Breath sounds diminished at the bases. A few rhonchi. No crackles. ABDOMEN: Soft, nontender. LEGS: No edema. No swelling. HISTOLOGIC AIDE: Diffusely weak. LABS: Sodium 142, potassium 3.0. ASSESSMENT: 1. Presyncope for evaluation with possible dehydration, possible acute gastroenteritis. 2. Hypokalemia. 3. Possible right lower lobe pneumonia. 4. Orthostatic hypotension. 5. History of coronary artery disease. 6. History of diabetes mellitus. 7. History of gastroesophageal reflux disease. 8. Hypertension. 9. Hyperlipidemia. 10. Narcolepsy/cataplexy. 11. History of adenoidectomy. 12. History of coronary artery disease/coronary artery bypass grafting. 13. Hypokalemia. 14. FULL CODE. RECOMMENDATIONS AND DISCUSSION: This 86 year old gentleman presented with multiple complex medical issues. We will monitor the patient closely, continue the current medications. Symptomatic treatment. I would recommend continue with current medications. Otherwise, we will cut down the dose of Imdur to 30 mg. Add Florinef to the current regimen. Continue to monitor. Further recommendations to follow. Prognosis is guarded. See orders for details. Also recommend to continue with empiric antibiotics. Otherwise, the prognosis guarded. MTDD
--- NOTE | 2016-10-30 22:16 | DS ---
DATE OF SERVICE: 10/22/2016 FINAL DIAGNOSES: 1. Presyncope with hypotension; possible dehydration, improved. 2. Acute diarrheal disease. 3. Mild fusiform aneurysm of the lower abdominal aorta, stable. 4. Degenerative joint disease. 5. Area of mass-like consolidation measuring 3 x 2.5 cm in the posterior right lobe adjacent to pleural fluid, most likely inflammatory disease. 6. Hypoalbuminemia with mild to moderate protein-calorie malnutrition. 7. Diabetes mellitus, type 2. 8. History of coronary artery disease, stent. DISCHARGE DISPOSITION: Patient will be discharged in stable condition with guarded prognosis. HISTORY OF PRESENT ILLNESS: This 86-year-old gentleman with a past medical history of multiple medical problems, being followed by Dr. Bartlett in the outpatient setting, was admitted with presyncope and weakness, treated with IV fluids and hydrated well. The patient improved significantly. On exam, vitals are stable. CARDIOVASCULAR: S1, S2 muffled. ABDOMEN: Soft. NERVOUS SYSTEM: No focal deficit. Patient is keen on going home. DISCHARGE ADVICE AND MEDICATIONS: 1. Discharge diet is cardiac. 2. Activity limited until followup. 3. Follow up with Dr. Bartlett in 2 to 3 days. 4. Carbidopa/levodopa 50/200 one p.o. b.i.d. 5. Voltaren 1 drop right eye. 6. Florinef 0.1 p.o. b.i.d. 7. Lantus 28 units subcutaneously at bedtime. 8. Imdur ER 30 mg p.o. daily. 9. Lactulose 10 grams b.i.d. p.r.n. 10. Xalatan 0.005% one drop right eye. 11. Levaquin 500 mg p.o. daily for 5 days. 12. Linzess 145 mcg p.o. daily. 13. Ritalin 40 mg before meals b.i.d. 14. Prilosec 20 mg before lunch. 15. Rapaflo 8 mg p.o. before supper. MTDD
== END 2016-10-22 12:45 | disposition home or self-care (01) | DRG 640 ==
LOC: EC 15:06 → OBSVTOIN 17:53 → 5MS5E 17:53
PROVIDERS: ADMIT Internal Medicine; ATTEND Internal Medicine
DX: E86.0 Dehydration (principal); J18.9 Pneumonia, unspecified organism; E44.0 Moderate protein-calorie malnutrition; E87.2 Acidosis; E11.65 Type 2 diabetes mellitus with hyperglycemia; E78.5 Hyperlipidemia, unspecified; E87.6 Hypokalemia; G47.411 Narcolepsy with cataplexy; I10 Essential (primary) hypertension; I25.10 Atherosclerotic heart disease of native coronary artery without angina pectoris; I95.1 Orthostatic hypotension; K21.9 Gastro-esophageal reflux disease without esophagitis; K59.00 Constipation, unspecified; M19.90 Unspecified osteoarthritis, unspecified site; N32.0 Bladder-neck obstruction; R19.7 Diarrhea, unspecified; I71.4 Abdominal aortic aneurysm, without rupture; Z68.24 Body mass index [BMI] 24.0-24.9, adult; Z95.1 Presence of aortocoronary bypass graft; Z79.4 Long term (current) use of insulin; Z79.899 Other long term (current) drug therapy; Z87.891 Personal history of nicotine dependence; Z95.5 Presence of coronary angioplasty implant and graft; Z88.0 Allergy status to penicillin; Z85.828 Personal history of other malignant neoplasm of skin; Z82.49 Family history of ischemic heart disease and other diseases of the circulatory system
CPT/HCPCS: 36415; 71010; 71275; 74177; 80048; 80053; 81003; 82550; 82553; 83036; 83605; 83735; 83880; 84100; 84484; 85025; 85379; 85610; 85730; 87086; 87324; 93005; 96361; 96374; 99291

== ENCOUNTER 2017-08-12 10:47 | Inpatient (IN) | payer MEDICARE ==
[2017-08-12] MEDS ORDERED: SODIUM CHLORIDE 0.9% 1,000 ML IV STA (11:06)
--- NOTE | 2017-08-12 11:11 | ED ---
General Adult HPI - General Stated complaint: syncope Time Seen by Provider: 08/12/17 11:00 Source: RN notes reviewed - History of Present Illness Initial comments: This is an 87-year-old male who presents emergency Department complaining of having 2 near syncopal episodes. Patient states at home he started to feel lightheaded and he almost passed out he went on the ground did not injure himself. Patient states that again occurred in the ambulance. Patient states currently he is complaining some lower abdominal pain worse on the right than the left. Patient states he feels as though he has to have a bowel movement this point time. His any chest pain or palpitations. Patient denies any shortness of breath or difficulty breathing. Patient states he feels weak overall however. Patient denies headache patient denies numbness weakness. Patient denies any back pain. Patient denies any recent fever chills or cough. Patient denies any leg edema. - Related Data Home Medications Medication Instructions Recorded Confirmed Insulin Glargine [Lantus] 25 unit SQ HS 09/14/13 08/12/17 Lactulose [Constulose] 10 gm PO BID PRN 10/19/16 08/12/17 Aspirin 81 mg PO DAILY 08/12/17 08/12/17 Isosorbide Mononitrate ER [Imdur] 60 mg PO DAILY 08/12/17 08/12/17 Methylphenidate HCl 20 mg PO TID 08/12/17 08/12/17 [Methylphenidate ER] Nitroglycerin Sl Tabs [Nitrostat] 0.4 mg SUBLINGUAL Q5M PRN 08/12/17 08/12/17 Prevagen 1 cap PO DAILY 08/12/17 08/12/17 Tamsulosin HCl [Flomax] 0.4 mg PO HS 08/12/17 08/12/17 metFORMIN HCL [Glucophage] 500 mg PO BID 08/12/17 08/12/17 Allergies Allergy/AdvReac Type Severity Reaction Status Date / Time Penicillins Allergy Unknown Verified 08/12/17 12:57 Review of Systems ROS Statement: Those systems with pertinent positive or pertinent negative responses have been documented in the HPI. ROS Other: All systems not noted in ROS Statement are negative. 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,SKIN CANCER, STOAMCH ULCERS 40 YERS AGO History of Any Multi-Drug Resistant Organisms: None Reported Past Surgical History: Adenoidectomy, Appendectomy, Coronary Bypass/CABG, Heart Catheterization With Stent, Orthopedic Surgery, Tonsillectomy Additional Past Surgical History / Comment(s): RT KNEE SX ON CATILAGE, TAY CATARACTS Past Anesthesia/Blood Transfusion Reactions: No Reported Reaction Date of Last Stent Placement:: 2005 Past Psychological History: No Psychological Hx Reported Additional Psychological History / Comment(s): PT LIVES AT [facility], GETS AROUND WITH A 4 PORNG CANE Smoking Status: Former smoker Past Alcohol Use History: Occasional Additional Past Alcohol Use History / Comment(s): STARTED SMOKING AROUND AGE 13 , QUIT IN THE 1970'S Past Drug Use History: None Reported - Past Family History Father Family Medical History: Cancer, CVA/TIA Additional Family Medical History / Comment(s): SERIES OF STROKES. AT AGE 95 Mother Family Medical History: Congestive Heart Failure (CHF) Additional Family Medical History / Comment(s): AT AGE 95 CHF General Exam - General Exam Comments Initial Comments: GENERAL: Patient is well-developed and well-nourished. Patient is nontoxic and well- hydrated and is in mild distress. ENT: Neck is soft and supple. No significant lymphadenopathy is noted. Oropharynx is clear. Moist mucous membranes. Neck has full range of motion without eliciting any pain. EYES: The sclera were anicteric and conjunctiva were pink and moist. Extraocular movements were intact and pupils were equal round and reactive to light. Eyelids were unremarkable. PULMONARY: Unlabored respirations. Good breath sounds bilaterally. No audible rales rhonchi or wheezing was noted. CARDIOVASCULAR: There is a regular rate and rhythm without any murmurs gallops or rubs. ABDOMEN: Soft and nontender with normal bowel sounds. SKIN: Skin is clear with no lesions or rashes and otherwise unremarkable. NEUROLOGIC: Patient is alert and oriented x3. Cranial nerves II through XII are grossly intact. Motor and sensory are also intact. Normal speech, volume and content. Symmetrical smile. MUSCULOSKELETAL: Normal extremities with adequate strength and full range of motion. LYMPHATICS: No significant lymphadenopathy is noted PSYCHIATRIC: Normal psychiatric evaluation. Normal interpersonal interactions appears functionally intact in deals appropriately with others. No signs of depression. No signs of anxiety. Course Vital Signs 08/12/17 08/12/17 08/12/17 11:10 11:20 12:57 Temperature 96.9 F L Pulse Rate 56 L 50 L 75 Pulse Rate [ Care Provider ] Respiratory 22 20 18 Rate Blood Pressure 125/61 110/56 143/65 Blood Pressure [Left Arm Sitting] Blood Pressure [Left Arm Supine] O2 Sat by Pulse 91 L 96 97 Oximetry 08/12/17 08/12/17 08/12/17 13:23 13:27 13:51 Temperature Pulse Rate 85 Pulse Rate [ 75 100 Care Provider ] Respiratory 20 Rate Blood Pressure 125/66 Blood Pressure 104/60 [Left Arm Sitting] Blood Pressure 143/85 104/60 [Left Arm Supine] O2 Sat by Pulse 97 Oximetry 08/12/17 16:49 Temperature 97.9 F Pulse Rate 92 Pulse Rate [ Care Provider ] Respiratory 18 Rate Blood Pressure 126/57 Blood Pressure [Left Arm Sitting] Blood Pressure [Left Arm Supine] O2 Sat by Pulse 100 Oximetry Medical Decision Making - Medical Decision Making EKG shows a sinus bradycardia at 40 bpm ME interval is 192 QRS is 96 Q-T intervals 514 QTC is 459. Patient has T-wave inversions in the in V4 through V6 as well as 1 and 2 Chest x-ray shows no acute abnormality. Patient received 2 L of normal saline in the emergency department and 12 units of NovoLog. I spoke with Dr. dixon. I wrote admitting orders. - Lab Data Result diagrams: 08/12/17 11:15 08/13/17 06:42 Lab Results 08/12/17 08/12/17 08/12/17 Range/Units 11:15 11:15 11:15 WBC 4.9 (3.8-10.6) k/uL RBC 4.62 (4.30-5.90) m/uL Hgb 14.0 (13.0-17.5) gm/dL Hct 41.2 (39.0-53.0) % MCV 89.2 (80.0-100.0) fL MCH 30.4 (25.0-35.0) pg MCHC 34.1 (31.0-37.0) g/dL RDW 12.6 (11.5-15.5) % Plt Count 172 (150-450) k/uL Neutrophils % 48 % Lymphocytes % 34 % Monocytes % 13 % Eosinophils % 2 % Basophils % 0 % Neutrophils # 2.3 (1.3-7.7) k/uL Lymphocytes # 1.7 (1.0-4.8) k/uL Monocytes # 0.6 (0-1.0) k/uL Eosinophils # 0.1 (0-0.7) k/uL Basophils # 0.0 (0-0.2) k/uL PT (9.0-12.0) sec INR (<1.2) APTT (22.0-30.0) sec Sodium 140 (137-145) mmol/L Potassium 4.0 (3.5-5.1) mmol/L Chloride 100 (98-107) mmol/L Carbon Dioxide 27 (22-30) mmol/L Anion Gap 13 mmol/L BUN 15 (9-20) mg/dL Creatinine 0.90 (0.66-1.25) mg/dL Est GFR (CKD-EPI)AfAm 87 (>60 ml/min/1.73 sqM) Est GFR (CKD-EPI)NonAf 75 (>60 ml/min/1.73 sqM) Glucose 472 H* (74-99) mg/dL Lactic Ac Sepsis Rflx Plasma Lactic Acid Sudarshan (0.7-2.0) mmol/L Calcium 8.9 (8.4-10.2) mg/dL Magnesium 1.7 (1.6-2.3) mg/dL Total Bilirubin 0.7 (0.2-1.3) mg/dL AST 13 L (17-59) U/L ALT 23 (21-72) U/L Alkaline Phosphatase 79 (38-126) U/L Total Creatine Kinase 29 L (55-170) U/L CK-MB (CK-2) 0.7 (0.0-2.4) ng/mL CK-MB (CK-2) Rel Index 2.4 Troponin I <0.012 (0.000-0.034) ng/mL Total Protein 5.5 L (6.3-8.2) g/dL Albumin 3.6 (3.5-5.0) g/dL Urine Color Urine Appearance (Clear) Urine pH (5.0-8.0) Ur Specific [facility] (1.001-1.035) Urine Protein (Negative) Urine Glucose (UA) (Negative) Urine Ketones (Negative) Urine Blood (Negative) Urine Nitrite (Negative) Urine Bilirubin (Negative) Urine Urobilinogen (<2.0) mg/dL Ur Leukocyte Esterase (Negative) Acetone, Qual (Negative) 08/12/17 08/12/17 08/12/17 Range/Units 11:15 11:15 11:55 WBC (3.8-10.6) k/uL RBC (4.30-5.90) m/uL Hgb (13.0-17.5) gm/dL Hct (39.0-53.0) % MCV (80.0-100.0) fL MCH (25.0-35.0) pg MCHC (31.0-37.0) g/dL RDW (11.5-15.5) % Plt Count (150-450) k/uL Neutrophils % % Lymphocytes % % Monocytes % % Eosinophils % % Basophils % % Neutrophils # (1.3-7.7) k/uL Lymphocytes # (1.0-4.8) k/uL Monocytes # (0-1.0) k/uL Eosinophils # (0-0.7) k/uL Basophils # (0-0.2) k/uL PT 10.8 (9.0-12.0) sec INR 1.1 (<1.2) APTT 22.2 (22.0-30.0) sec Sodium (137-145) mmol/L Potassium (3.5-5.1) mmol/L Chloride (98-107) mmol/L Carbon Dioxide (22-30) mmol/L Anion Gap mmol/L BUN (9-20) mg/dL Creatinine (0.66-1.25) mg/dL Est GFR (CKD-EPI)AfAm (>60 ml/min/1.73 sqM) Est GFR (CKD-EPI)NonAf (>60 ml/min/1.73 sqM) Glucose (74-99) mg/dL Lactic Ac Sepsis Rflx Y Plasma Lactic Acid Sudarshan 2.8 H* (0.7-2.0) mmol/L Calcium (8.4-10.2) mg/dL Magnesium (1.6-2.3) mg/dL Total Bilirubin (0.2-1.3) mg/dL AST (17-59) U/L ALT (21-72) U/L Alkaline Phosphatase (38-126) U/L Total Creatine Kinase (55-170) U/L CK-MB (CK-2) (0.0-2.4) ng/mL CK-MB (CK-2) Rel Index Troponin I (0.000-0.034) ng/mL Total Protein (6.3-8.2) g/dL Albumin (3.5-5.0) g/dL Urine Color Urine Appearance (Clear) Urine pH (5.0-8.0) Ur Specific [facility] (1.001-1.035) Urine Protein (Negative) Urine Glucose (UA) (Negative) Urine Ketones (Negative) Urine Blood (Negative) Urine Nitrite (Negative) Urine Bilirubin (Negative) Urine Urobilinogen (<2.0) mg/dL Ur Leukocyte Esterase (Negative) Acetone, Qual (Negative) 08/12/17 08/12/17 Range/Units 11:55 13:00 WBC (3.8-10.6) k/uL RBC (4.30-5.90) m/uL Hgb (13.0-17.5) gm/dL Hct (39.0-53.0) % MCV (80.0-100.0) fL MCH (25.0-35.0) pg MCHC (31.0-37.0) g/dL RDW (11.5-15.5) % Plt Count (150-450) k/uL Neutrophils % % Lymphocytes % % Monocytes % % Eosinophils % % Basophils % % Neutrophils # (1.3-7.7) k/uL Lymphocytes # (1.0-4.8) k/uL Monocytes # (0-1.0) k/uL Eosinophils # (0-0.7) k/uL Basophils # (0-0.2) k/uL PT (9.0-12.0) sec INR (<1.2) APTT (22.0-30.0) sec Sodium (137-145) mmol/L Potassium (3.5-5.1) mmol/L Chloride (98-107) mmol/L Carbon Dioxide (22-30) mmol/L Anion Gap mmol/L BUN (9-20) mg/dL Creatinine (0.66-1.25) mg/dL Est GFR (CKD-EPI)AfAm (>60 ml/min/1.73 sqM) Est GFR (CKD-EPI)NonAf (>60 ml/min/1.73 sqM) Glucose (74-99) mg/dL Lactic Ac Sepsis Rflx Plasma Lactic Acid Sudarshan (0.7-2.0) mmol/L Calcium (8.4-10.2) mg/dL Magnesium (1.6-2.3) mg/dL Total Bilirubin (0.2-1.3) mg/dL AST (17-59) U/L ALT (21-72) U/L Alkaline Phosphatase (38-126) U/L Total Creatine Kinase (55-170) U/L CK-MB (CK-2) (0.0-2.4) ng/mL CK-MB (CK-2) Rel Index Troponin I (0.000-0.034) ng/mL Total Protein (6.3-8.2) g/dL Albumin (3.5-5.0) g/dL Urine Color Yellow Urine Appearance Clear (Clear) Urine pH 5.5 (5.0-8.0) Ur Specific [facility] 1.015 (1.001-1.035) Urine Protein Negative (Negative) Urine Glucose (UA) 4+ H (Negative) Urine Ketones Trace H (Negative) Urine Blood Negative (Negative) Urine Nitrite Negative (Negative) Urine Bilirubin Negative (Negative) Urine Urobilinogen <2.0 (<2.0) mg/dL Ur Leukocyte Esterase Negative (Negative) Acetone, Qual Negative (Negative) Disposition Clinical Impression: Syncope and collapse, Hyperglycemia Disposition: ADMITTED IP TO THIS HOSP Is patient prescribed a controlled substance at d/c from ED?: No Time of Disposition: 13:49
[2017-08-12 11:35] LABS: Basophils % (A) 0 %; Eosinophils # (A) 0.1 k/uL (0-0.7); Eosinophils % (A) 2 %; HCT 41.2 % (39.0-53.0); Lymphocytes # (A) 1.7 k/uL (1.0-4.8); Lymphocytes % (A) 34 %; MCH 30.4 pg (25.0-35.0); MCHC 34.1 g/dL (31.0-37.0); MCV 89.2 fL (80.0-100.0); Mean Platelet Volume 9.1; Monocytes # (A) 0.6 k/uL (0-1.0); Monocytes % (A) 13 %; Neutrophils # (A) 2.3 k/uL (1.3-7.7); Neutrophils % (A) 48 %; Platelet Count 172 k/uL (150-450); RBC 4.62 m/uL (4.30-5.90); RDW 12.6 % (11.5-15.5); WBC 4.9 k/uL (3.8-10.6)
--- NOTE | 2017-08-12 11:44 | XR ---
EXAMINATION TYPE: XR chest 2V DATE OF EXAM: 08/12/2017 COMPARISON: NONE HISTORY: Shortness of breath TECHNIQUE: Frontal and lateral views of the chest are obtained. FINDINGS: Persistent chronic elevation right hemidiaphragm with right-sided pleural thickening and small effusi on unchanged from prior examination. The left lung remains clear. Heart size is stable. Mediastinal structures are stable and grossly unremarkable. No evidence for hilar prominence. Degenerative changes dorsal spine. IMPRESSION: 1. No evidence for acute pulmonary disease.
[2017-08-12 11:49] LABS: Albumin 3.6 g/dL (3.5-5.0); Calcium 8.9 mg/dL (8.4-10.2); Magnesium 1.7 mg/dL (1.6-2.3); Total Bilirubin 0.7 mg/dL (0.2-1.3); Total Protein 5.5 g/dL (6.3-8.2)
[2017-08-12 11:55] LABS: INR 1.1 (<1.2); Partial Thromboplastin Time 22.2 sec (22.0-30.0); Prothrombin Time 10.8 sec (9.0-12.0)
[2017-08-12 11:57] LABS: Creatine Kinase 29 U/L (55-170)
[2017-08-12 12:08] LABS: Creatine Kinase MB 0.7 ng/mL (0.0-2.4); Troponin I <0.012 ng/mL (0.000-0.034)
[2017-08-12] MEDS: SODIUM CHLORIDE 0.9% 1,000 ML IV ONE ×2 (12:29→12:56)
[2017-08-12] MEDS ORDERED: INSULIN ASPART 100 UNIT/ML 1 ML 10 ML VIAL SQ ONE ×2 (13:07→15:04)
[2017-08-12] MEDS ORDERED: ONDANSETRON 4 MG/2 ML VIAL IVP STA ×2 (13:25→15:04)
[2017-08-12 13:31] LABS: Appearance,Urine Clear (Clear); Bilirubin,Urine Negative (Negative); Blood,Urine Negative (Negative); Color,Urine Yellow; Glucose,Urine (UA) 4+ (Negative); Ketones,Urine Trace (Negative); Leukocyte Esterase,Urine Negative (Negative); Nitrite,Urine Negative (Negative); PH, Urine 5.5 (5.0-8.0); Protein,Urine Negative (Negative); Specific Gravity,Urine 1.015 (1.001-1.035); Urobilinogen,Urine <2.0 mg/dL (<2.0)
[2017-08-12] MEDS ORDERED: NITROGLYCERIN SL TABS 0.4 MG TAB SUBLINGUAL PRN (13:49)
[2017-08-12 14:19] LABS: Glucose,Whole Blood 392 mg/dL (75-99)
[2017-08-12] MEDS: SODIUM CHLORIDE 0.9% 1,000 ML IV SCH (14:57)
[2017-08-12 14:58] LABS: Glucose,Whole Blood 421 mg/dL (75-99)
[2017-08-12] MEDS ORDERED: SODIUM CHLORIDE 0.9% 1,000 ML IV ONE (15:04)
[2017-08-12 16:20] LABS: Creatine Kinase 31 U/L (55-170)
[2017-08-12 16:34] LABS: Creatine Kinase MB 0.7 ng/mL (0.0-2.4); Troponin I <0.012 ng/mL (0.000-0.034)
[2017-08-12 17:04] LABS: Glucose,Whole Blood 379 mg/dL (75-99)
[2017-08-12 17:17] LABS: Glucose,Whole Blood 256 mg/dL (75-99)
[2017-08-12] MEDS: INSULIN ASPART 100 UNIT/ML 1 ML 10 ML VIAL SQ SCH (17:48)
[2017-08-12 20:50] LABS: Glucose,Whole Blood 214 mg/dL (75-99)
[2017-08-12] MEDS ORDERED: RX INFO: IV CONTRAST WAS GIVEN 1 EACH MISC MISCELLANE PRN (21:17)
--- NOTE | 2017-08-12 22:47 | CT ---
EXAMINATION TYPE: CT abdomen pelvis w con DATE OF EXAM: 08/12/2017 COMPARISON: 10/19/2016 HISTORY: ab pain, poss obstruction, dehydration CT DLP: 692.4 mGycm Automated exposure control for dose reduction was used. TECHNIQUE: Helical acquisition of images was performed from the lung bases through the pelvis. CONTRAST: Performed without Oral Contrast and with IV Contrast, patient injected with 100 mL of Isovue 300. FINDINGS: There is a right pleural effusion. Heart is enlarged. Thoracic aorta is atheromatous. There is no per icardial effusion. There is small left pleural effusion. There is consolidation at the right lung bas e. Liver shows no focal defect. Gallbladder appears normal. Bile ducts are not dilated. Spleen appears n ormal. I see no pancreatic mass. There is fatty infiltration of the pancreas. There is no adrenal mass. Kidneys show satisfactory contrast opacification. There is no hydronephrosi s. There is no sign of free air. There is retained fecal material in the colon with enlarged rectum a nd sigmoid colon. Rectosigmoid colon measures up to 6.5 cm. There is no retroperitoneal adenopathy. A bdominal aorta is atheromatous. There is a mild aneurysm of the abdominal aorta that measures up to 3 .3 cm. There is thrombus on the posterior wall. There is no evidence of dissection. I see no intestinal wall thickening. Urinary bladder is somewhat dilated. There is no sign of appendi citis. Appendix is not seen. Urinary bladder measures 12.5 cm in length. There are spondylotic change s in the lumbar spine. I see no focal bone destruction. IMPRESSION: THERE IS EVIDENCE OF CONSTIPATION. LARGE URINARY BLADDER CONSISTENT WITH BLADDER OUTLET OBSTRUCTION. THIS IS UNCHANGED. NO RENAL OBSTRUCTION. MILD ABDOMINAL AORTIC ANEURYSM THAT APPEARS SIMILAR TO LAST EXAM. CONSTIPATION IS SIMILAR TO OLD EXAM . THE LEFT colon IS LARGE AND CONSISTENT WITH SOME DEGREE OF ILEUS. THERE IS CHRONIC RIGHT PLEURAL EFFU [place] AND MASSLIKE CONSOLIDATION IN THE RIGHT LOWER LOBE SIMILAR TO OLD EXAM. CARDIOMEGALY. THE STOMAC H IS LARGE AND SUGGESTIVE OF SOME DEGREE OF GASTROPARESIS THAT IS STABLE COMPARED TO OLD EXAM.
[2017-08-12 22:52] LABS: Creatine Kinase 23 U/L (55-170)
[2017-08-12 23:04] LABS: Creatine Kinase MB 0.6 ng/mL (0.0-2.4); Troponin I <0.012 ng/mL (0.000-0.034)
--- NOTE | 2017-08-13 | P.PN ---
Progress Note - Text Cold by nurse to evaluate the patient's abdomen. Nurse noticed that abdomen is distended, tender and decreased bowel sounds. Chart was reviewed. Patient was admitted earlier from [facility] due to syncopal episode and found to be hyperglycemic with mildly elevated lactic acid of 2.4. Repeat lactic acid this afternoon is 3.7. He received 3 L bolus of normal saline this morning in the emergency department. Patient was awake and alert and not appear to be in any distress or discomfort. He reports having pain in the suprapubic and both lower quadrants areas. He states that last bowel movement was yesterday and states that he usually has one bowel movement every 2 weeks. Denies passing gas. No diarrhea or melena. No nausea or vomiting. No fever or chills. No difficulties in urination. On physical examination vital signs are reviewed. Blood pressure stable and heart rate in range of 19. Patient was awake and alert not in any distress Head and neck anicteric sclera and oropharyngeal mucosa moist without any lesions Cardiovascular regular rhythm and rate S1-S2 Lungs breath sounds are present without any rhonchi or wheezing Abdomen: Bowel sounds are diminished in all 4 quadrants, he has diffuse tenderness to deep palpation especially in the left lower and suprapubic area. No involuntary guarding but rebound is present. No postevent of angles tenderness Extremities without any edema Impression: Abdominal pain suspicious for acute abdomen, lactic acidosis: Plan proceed with CT abdomen with IV contrast stat Continue hydration with IV fluids repeat CBC CMP and lactic acid Plan of care was discussed with family, including patient's son at bedside. He expressed wish that his father to be DO NOT RESUSCITATE and declined any aggressive management at this point. CT results reviewed; to be addressed: constipation/ urinary retention enema ordered PVR to be monitored repeat BMP and lactic acid
[2017-08-13 02:02] LABS: Hemoglobin A1C 10.7 % (4.0-6.0)
[2017-08-13 06:23] LABS: Glucose,Whole Blood 275 mg/dL (75-99)
[2017-08-13] MEDS: INSULIN ASPART 100 UNIT/ML 1 ML 10 ML VIAL SQ SCH ×5 (06:58→21:06)
[2017-08-13] MEDS: SODIUM CHLORIDE 0.9% 1,000 ML IV SCH ×4 (06:59→17:09)
[2017-08-13] MEDS ORDERED: LACTULOSE 20 GM/30 ML CUP PO PRN (07:24)
[2017-08-13] MEDS ORDERED: INSULIN DETEMIR 100 UNIT/ML 10 ML VIAL SQ ONE (08:00)
[2017-08-13] MEDS ORDERED: NA PHOS,M-B/NA PHOS,DI-BA 133 ML ENEMA RECTAL ONE (08:00)
[2017-08-13 08:06] LABS: Calcium 8.3 mg/dL (8.4-10.2); Potassium 4.2 mmol/L (3.5-5.1)
[2017-08-13] MEDS ORDERED: PREVAGEN PO SCH (09:00)
[2017-08-13] MEDS: ISOSORBIDE MONONITRATE ER 60 MG TAB.ER.24H PO SCH (09:14)
--- NOTE | 2017-08-13 09:48 | P.PN ---
Subjective Progress Note Date: 08/13/17 Principal diagnosis: Hyperglycemia and weak Physical little better today still feels weak though. No vomiting no diarrhea had bowel movement earlier. Says does not have much of an appetite today Objective - Vital Signs Vital signs: Vital Signs Temp 98.3 F 08/13/17 05:12 Pulse 96 08/13/17 08:25 Resp 18 08/13/17 08:25 BP 124/62 08/13/17 08:25 Pulse Ox 97 08/13/17 08:25 Intake & Output 08/12/17 08/13/17 08/13/17 18:59 06:59 18:59 Intake Total 180 Balance 180 Weight 63.503 kg 63.503 kg Intake: Oral 180 Other: Voiding Method Diaper # Voids 1 # Bowel Movements 1 - Exam gen:alert and oriented lungs:clear to auscultation heart:s1s2 abdomen:soft and depressible,non tender ext:no edema - Labs CBC & Chem 7: 08/12/17 11:15 08/13/17 06:42 Labs: Abnormal Lab Results - Last 24 Hours (Table) 08/12/17 08/12/17 08/12/17 Range/Units 11:15 11:15 11:15 Carbon Dioxide (22-30) mmol/L Glucose 472 H* (74-99) mg/dL POC Glucose (mg/dL) (75-99) mg/dL Hemoglobin A1c (4.0-6.0) % Plasma Lactic Acid Sudarshan 2.8 H* (0.7-2.0) mmol/L Calcium (8.4-10.2) mg/dL AST 13 L (17-59) U/L Total Creatine Kinase 29 L (55-170) U/L Total Protein 5.5 L (6.3-8.2) g/dL LDL Cholesterol, Calc (0-99) mg/dL HDL Cholesterol (40-60) mg/dL Urine Glucose (UA) (Negative) Urine Ketones (Negative) 08/12/17 08/12/17 08/12/17 Range/Units 13:00 14:17 14:56 Carbon Dioxide (22-30) mmol/L Glucose (74-99) mg/dL POC Glucose (mg/dL) 392 H 421 H (75-99) mg/dL Hemoglobin A1c (4.0-6.0) % Plasma Lactic Acid Sudarshan (0.7-2.0) mmol/L Calcium (8.4-10.2) mg/dL AST (17-59) U/L Total Creatine Kinase (55-170) U/L Total Protein (6.3-8.2) g/dL LDL Cholesterol, Calc (0-99) mg/dL HDL Cholesterol (40-60) mg/dL Urine Glucose (UA) 4+ H (Negative) Urine Ketones Trace H (Negative) 08/12/17 08/12/17 08/12/17 Range/Units 15:52 15:52 15:52 Carbon Dioxide (22-30) mmol/L Glucose (74-99) mg/dL POC Glucose (mg/dL) (75-99) mg/dL Hemoglobin A1c 10.7 H (4.0-6.0) % Plasma Lactic Acid Sudarshan 3.7 H* (0.7-2.0) mmol/L Calcium (8.4-10.2) mg/dL AST (17-59) U/L Total Creatine Kinase 31 L (55-170) U/L Total Protein (6.3-8.2) g/dL LDL Cholesterol, Calc (0-99) mg/dL HDL Cholesterol (40-60) mg/dL Urine Glucose (UA) (Negative) Urine Ketones (Negative) 08/12/17 08/12/17 08/12/17 Range/Units 16:40 17:12 20:48 Carbon Dioxide (22-30) mmol/L Glucose (74-99) mg/dL POC Glucose (mg/dL) 379 H 256 H 214 H (75-99) mg/dL Hemoglobin A1c (4.0-6.0) % Plasma Lactic Acid Sudarshan (0.7-2.0) mmol/L Calcium (8.4-10.2) mg/dL AST (17-59) U/L Total Creatine Kinase (55-170) U/L Total Protein (6.3-8.2) g/dL LDL Cholesterol, Calc (0-99) mg/dL HDL Cholesterol (40-60) mg/dL Urine Glucose (UA) (Negative) Urine Ketones (Negative) 08/12/17 08/13/17 08/13/17 Range/Units 22:29 06:19 06:42 Carbon Dioxide 20 L (22-30) mmol/L Glucose 290 H (74-99) mg/dL POC Glucose (mg/dL) 275 H (75-99) mg/dL Hemoglobin A1c (4.0-6.0) % Plasma Lactic Acid Sudarshan (0.7-2.0) mmol/L Calcium 8.3 L (8.4-10.2) mg/dL AST (17-59) U/L Total Creatine Kinase 23 L (55-170) U/L Total Protein (6.3-8.2) g/dL LDL Cholesterol, Calc 101 H (0-99) mg/dL HDL Cholesterol 68 H (40-60) mg/dL Urine Glucose (UA) (Negative) Urine Ketones (Negative) Assessment and Plan (1) Dehydration Narrative/Plan: IV fluids Current Visit: Yes Status: Acute Code(s): E86.0 - DEHYDRATION SNOMED Code( s): 95483022 (2) CAD (coronary artery disease) Narrative/Plan: No chest pains Current Visit: Yes Status: Acute Code(s): I25.10 - ATHSCL HEART DISEASE OF [place] CORONARY ARTERY W/O ANG PCTRS SNOMED Code(s): 14924696 (3) Hyperglycemia Narrative/Plan: Start Lantus Continue Accu-Chek Uncontrolled Await hemoglobin A1c Current Visit: Yes Status: Acute Code(s): R73.9 - HYPERGLYCEMIA, UNSPECIFIED SNOMED Code(s): 36450116 (4) Near syncope Narrative/Plan: Secondary to dehydration and weakness Current Visit: No Status: Acute Code(s): R55 - SYNCOPE AND COLLAPSE SNOMED Code(s): 733499370 (5) BPH (benign prostatic hyperplasia) Narrative/Plan: Continue Flomax Current Visit: Yes Status: Acute Code(s): N40.0 - BENIGN PROSTATIC HYPERPLASIA WITHOUT LOWER URINRY TRACT SYMP SNOMED Code(s): 276503020
[2017-08-13] MEDS: METHYLPHENIDATE PO SCH ×3 (10:45→20:27)
[2017-08-13] MEDS: ASPIRIN 325 MG TAB PO SCH (10:53)
[2017-08-13 12:03] LABS: Glucose,Whole Blood 303 mg/dL (75-99)
[2017-08-13 14:24] VITALS: BMI 24.0
--- NOTE | 2017-08-13 15:21 | P.CRDCN ---
History of Present Illness Consult date: 08/13/17 Requesting physician: Sandip Roberts Reason for Consult (text): syncope Chief complaint: weakness, falling History of present illness: This is a pleasant 87-year-old gentleman with history of coronary artery disease , prior CABG, diabetes, hyperlipidemia, hypertension. He apparently fell with Dr. Alex in the office. He resides at an independent living facility. Presented to the hospital with complaints of weakness and falling, denies losing consciousness. He was apparently trying to have a bowel movement and also experiencing some nausea and vomiting during this episode. He says he did fall twice. Upon arrival patient's EKG showed sinus bradycardia with a heart rate in the 40s and since then her rate has been mostly in the 90s-100s. He has been afebrile and resting blood pressure has been stable. Orthostatic blood pressures so a supine blood pressure of 124/62, sitting 125/66 and a standing blood pressure 104/57 and a supine heart rate of 96, sitting 104 and standing 110. Laboratory values show troponin less than 0.0123, BUN 20, creatinine 0.87 and potassium of 4.2. His blood glucose was quite elevated on admission at 472. Patient's family is in the room with the patient and verbalizes the patient does not always take medications as prescribed. Upon presentation the patient was also complaining of some abdominal discomfort and a CT of the abdomen and pelvis was obtained. 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 Upon examination, patient is resting comfortably in bed. He denies further complaints of feeling weak. He had no chest discomfort, palpitations, shortness of breath or loss of consciousness. 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,SKIN CANCER, STOAMCH ULCERS 40 YERS AGO History of Any Multi-Drug Resistant Organisms: None Reported Past Surgical History: Adenoidectomy, Appendectomy, Coronary Bypass/CABG, Heart Catheterization With Stent, Orthopedic Surgery, Tonsillectomy Additional Past Surgical History / Comment(s): RT KNEE SX ON CATILAGE, TAY CATARACTS Past Anesthesia/Blood Transfusion Reactions: No Reported Reaction Date of Last Stent Placement:: 2005 Past Psychological History: No Psychological Hx Reported Additional Psychological History / Comment(s): PT LIVES AT [facility], GETS AROUND WITH A 4 PORNG CANE Smoking Status: Former smoker Past Alcohol Use History: Occasional Additional Past Alcohol Use History / Comment(s): STARTED SMOKING AROUND AGE 13 , QUIT IN THE S Past Drug Use History: None Reported - Past Family History Father Family Medical History: Cancer, CVA/TIA Additional Family Medical History / Comment(s): SERIES OF STROKES. AT AGE 95 Mother Family Medical History: Congestive Heart Failure (CHF) Additional Family Medical History / Comment(s): AT AGE 95 CHF Medications and Allergies Home Medications Medication Instructions Recorded Confirmed Type Insulin Glargine [Lantus] 25 unit SQ HS 09/14/13 08/12/17 History Lactulose [Constulose] 10 gm PO BID PRN 10/19/16 08/12/17 History Aspirin 81 mg PO DAILY 08/12/17 08/12/17 History Isosorbide Mononitrate ER [Imdur] 60 mg PO DAILY 08/12/17 08/12/17 History Methylphenidate HCl 20 mg PO TID 08/12/17 08/12/17 History [Methylphenidate ER] Nitroglycerin Sl Tabs [Nitrostat] 0.4 mg SUBLINGUAL Q5M PRN 08/12/17 08/12/17 History Prevagen 1 cap PO DAILY 08/12/17 08/12/17 History Tamsulosin HCl [Flomax] 0.4 mg PO HS 08/12/17 08/12/17 History metFORMIN HCL [Glucophage] 500 mg PO BID 08/12/17 08/12/17 History Allergies Allergy/AdvReac Type Severity Reaction Status Date / Time Penicillins Allergy Unknown Verified 08/12/17 12:57 Physical Exam Vitals: Vital Signs Temp Pulse Pulse Pulse Pulse Pulse Resp 08/13/17 08:25 104 H 110 H 96 18 08/13/17 05:12 98.3 F 105 H 18 08/13/17 03:33 98.4 F 110 H 18 08/13/17 00:00 98.4 F 110 H 18 08/12/17 20:00 98.5 F 103 H 18 08/12/17 16:49 97.9 F 92 18 08/12/17 13:51 85 20 08/12/17 13:27 100 08/12/17 13:23 75 08/12/17 12:57 75 18 BP BP BP BP Pulse Ox 08/13/17 08:25 125/66 124/62 104/57 97 08/13/17 05:12 130/65 98 08/13/17 03:33 146/78 96 08/13/17 00:00 146/78 96 08/12/17 20:00 127/75 98 08/12/17 16:49 126/57 100 08/12/17 13:51 125/66 97 08/12/17 13:27 104/60 104/60 08/12/17 13:23 143/85 08/12/17 12:57 143/65 97 Intake and Output 08/12/17 08/13/17 08/13/17 22:59 06:59 14:59 Intake Total 180 Balance 180 Intake: Oral 180 Other: Voiding Method Diaper Diaper Diaper # Voids 1 1 2 # Bowel Movements 2 Weight 63.503 kg 63.503 kg PHYSICAL EXAMINATION: HEENT: Head is atraumatic, normocephalic. Pupils equal, round. Neck is supple. There is no elevated jugular venous pressure. HEART EXAMINATION: Heart sounds regular, S1 and S2 normal. No murmur or gallop heard. CHEST EXAMINATION: Lungs are clear to auscultation and precussion. No chest wall tenderness is noted on palpation or with deep breathing. ABDOMEN: Soft, mildly tender to palpation, nondistended. Bowel sounds are heard. No organomegaly noted. EXTREMITIES: 2+ peripheral pulses with no evidence of peripheral edema and no calf tenderness noted. NEUROLOGIC patient is awake, alert and oriented x3. . Results 08/12/17 11:15 08/13/17 06:42 Cardiac Enzymes 08/12/17 08/12/17 08/12/17 Range/Units 11:15 11:15 15:52 AST 13 L (17-59) U/L CK-MB (CK-2) 0.7 0.7 (0.0-2.4) ng/mL Troponin I <0.012 <0.012 (0.000-0.034) ng/mL 08/12/17 Range/Units 22:29 AST (17-59) U/L CK-MB (CK-2) 0.6 (0.0-2.4) ng/mL Troponin I <0.012 (0.000-0.034) ng/mL Coagulation 08/12/17 Range/Units 11:15 PT 10.8 (9.0-12.0) sec APTT 22.2 (22.0-30.0) sec Lipids 08/13/17 Range/Units 06:42 Triglycerides 48 (<150) mg/dL Cholesterol 179 (<200) mg/dL HDL Cholesterol 68 H (40-60) mg/dL Comprehensive Metabolic Panel 08/12/17 08/13/17 Range/Units 11:15 06:42 Sodium 140 143 (137-145) mmol/L Potassium 4.0 4.2 (3.5-5.1) mmol/L Chloride 100 106 (98-107) mmol/L Carbon Dioxide 27 20 L (22-30) mmol/L BUN 15 20 (9-20) mg/dL Creatinine 0.90 0.87 (0.66-1.25) mg/dL Glucose 472 H* 290 H (74-99) mg/dL Calcium 8.9 8.3 L (8.4-10.2) mg/dL AST 13 L (17-59) U/L ALT 23 (21-72) U/L Alkaline Phosphatase 79 (38-126) U/L Total Protein 5.5 L (6.3-8.2) g/dL Albumin 3.6 (3.5-5.0) g/dL Current Medications Generic Name Dose Route Start Last Admin Trade Name Freq PRN Reason Stop Dose Admin Aspirin 325 mg 08/13/17 09:00 08/13/17 10:53 Aspirin PO 325 mg DAILY SARAH Administration Sodium Chloride 1,000 mls @ 75 mls/hr 08/12/17 14:00 08/13/17 07:05 Saline 0.9% IV 125 mls/hr .[id number] SARAH Administration Insulin Aspart 0 unit 08/12/17 17:30 08/13/17 07:04 Novolog SQ 4 unit ACHS SARAH Administration Protocol Insulin Detemir 25 unit 08/13/17 21:00 Levemir SQ HS SARAH Isosorbide Mononitrate 60 mg 08/13/17 09:00 08/13/17 09:14 Imdur PO 60 mg DAILY SARAH Administration Lactulose 10 gm 08/13/17 07:24 Cephulac PO BID PRN Constipation Miscellaneous Information 1 each 08/12/17 21:17 Rx Info: Iv Contrast Was Given MISCELLANE 08/14/17 21:18 DAILY PRN Per Protocol Nitroglycerin 0.4 mg 08/12/17 13:49 Nitrostat SUBLINGUAL Q5M PRN Chest Pain Non-Formulary - 20 mg 08/13/17 09:00 08/13/17 10:45 Methylphenidate Er PO Not Given TID SARAH Tamsulosin HCl 0.4 mg 08/13/17 21:00 Flomax PO HS SARAH Intake and Output 08/12/17 08/13/17 08/13/17 22:59 06:59 14:59 Intake Total 180 Balance 180 Intake: Oral 180 Other: Voiding Method Diaper Diaper Diaper # Voids 1 1 2 # Bowel Movements 2 Weight 63.503 kg 63.503 kg 08/12/17 11:15 08/13/17 06:42 Assessment and Plan Assessment: #1 weakness, near syncope likely related to vasovagal episode #2 dehydration #3 history of CAD with prior coronary artery bypass grafting #4 hyperglycemia #5 medication noncompliance Plan: From cardiology's perspective, we will obtain a 2-D echo with Doppler. Patient' s symptoms of near syncope likely secondary to vasovagal episode with a bowel movement. We will continue to follow the patient right further recommendations accordingly. BLOCK SORTER note has been reviewed, I agree with a documented findings and plan of care. Patient was seen and examined.
[2017-08-13 16:54] LABS: Glucose,Whole Blood 160 mg/dL (75-99)
--- NOTE | 2017-08-13 17:26 | ECHOF ---
Referral Reason:near syncope MEASUREMENTS -------- HEIGHT: 162.6 cm WEIGHT: 63.5 kg BP: 125/66 RVIDd: 2.4 cm (< 3.3) IVSd: 1.3 cm (0.6 - 1.1) LVIDd: 4.2 cm (3.9 - 5.3) LVPWd: 1.4 cm (0.6 - 1.1) IVSs: 1.6 cm LVIDs: 2.9 cm LVPWs: 1.6 cm LAESV Index (A-L): 28.47 ml/m Ao Diam: 3.8 cm (2.0 - 3.7) AV Cusp: 1.8 cm (1.5 - 2.6) LA Diam: 2.9 cm (2.7 - 3.8) EPSS: 0.7 cm MV E [place]: 0.57 m/s MV DecT: 230 ms MV A [place]: 0.88 m/s MV E/A Ratio: 0.64 RAP: 5.00 mmHg RVSP: 17.42 mmHg MV EF SLOPE: 92.32 mm/s (70 - 150) MV EXCURSION: 1.46 cm (> 18.000) FINDINGS -------- Sinus rhythm. This was a technically difficult study with suboptimal views. The left ventricular size is normal. There is moderate concentric left ventricular hypertrophy. O verall left ventricular systolic function is low-normal with, an EF between 50 - 55 %. The right ventricle is normal in size and function. LA is midly dilated 29-33ml/m2. The right atrium is normal in size. 3ml of Lumason was utilized for enhancement of images. Aortic valve is trileaflet and is mildly thickened. There is no evidence of aortic regurgitation. There is no evidence of aortic stenosis. The mitral valve leaflets are mildly thickened. There is trace to mild mitral regurgitation. Trace tricuspid regurgitation present. Right ventricular systolic pressure is normal at < 35 mmHg. There is no evidence of pulmonary hypertension. The pulmonic valve was not well visualized. The aortic root size is normal. IVC Not well visulized. There is no pericardial effusion. CONCLUSIONS -------- 1. Sinus rhythm. 2. This was a technically difficult study with suboptimal views. 3. The left ventricular size is normal. 4. There is moderate concentric left ventricular hypertrophy. 5. Overall left ventricular systolic function is low-normal with, an EF between 50 - 55 %. 6. LA is midly dilated 29-33ml/m2. 7. 3ml of Lumason was utilized for enhancement of images. 8. Aortic valve is trileaflet and is mildly thickened. 9. The mitral valve leaflets are mildly thickened. 10. There is trace to mild mitral regurgitation. 11. Trace tricuspid regurgitation present. 12. Right ventricular systolic pressure is normal at < 35 mmHg. 13. There is no evidence of pulmonary hypertension. 14. The pulmonic valve was not well visualized. 15. The aortic root size is normal. 16. IVC Not well visulized. 17. There is no pericardial effusion. FROZEN MEAT CUTTER: Vaughn Sage RDCS
[2017-08-13] MEDS: TAMSULOSIN 0.4 MG CAP.ER.24H PO SCH (20:23)
[2017-08-13] MEDS ORDERED: INSULIN DETEMIR 100 UNIT/ML 10 ML VIAL SQ SCH (21:00)
[2017-08-13 21:04] LABS: Glucose,Whole Blood 60 mg/dL (75-99)
[2017-08-13 21:27] LABS: Glucose,Whole Blood 73 mg/dL (75-99)
[2017-08-14 01:45] LABS: Glucose,Whole Blood 134 mg/dL (75-99)
[2017-08-14 05:50] LABS: Glucose,Whole Blood 51 mg/dL (75-99)
[2017-08-14 06:08] LABS: Glucose,Whole Blood 58 mg/dL (75-99)
[2017-08-14 06:23] LABS: Glucose,Whole Blood 69 mg/dL (75-99)
[2017-08-14 06:30] LABS: HCT 34.1 % (39.0-53.0); HGB 11.6 gm/dL (13.0-17.5); MCH 29.9 pg (25.0-35.0); MCHC 33.9 g/dL (31.0-37.0); MCV 88.4 fL (80.0-100.0); Mean Platelet Volume 8.9; Platelet Count 158 k/uL (150-450); RBC 3.86 m/uL (4.30-5.90); RDW 12.9 % (11.5-15.5); WBC 12.5 k/uL (3.8-10.6)
[2017-08-14] MEDS: INSULIN ASPART 100 UNIT/ML 1 ML 10 ML VIAL SQ SCH ×4 (06:31→20:37)
[2017-08-14 06:41] LABS: Anion Gap 9 mmol/L; Blood Urea Nitrogen 18 mg/dL (9-20); Calcium 7.8 mg/dL (8.4-10.2); Carbon Dioxide 26 mmol/L (22-30); Chloride 109 mmol/L (98-107); Potassium 3.1 mmol/L (3.5-5.1); Sodium 144 mmol/L (137-145)
[2017-08-14 06:49] LABS: Glucose,Whole Blood 83 mg/dL (75-99)
[2017-08-14] MEDS: SODIUM CHLORIDE 0.9% 1,000 ML IV SCH (07:03)
[2017-08-14 07:08] LABS: Glucose 41 mg/dL (74-99)
[2017-08-14] MEDS: METHYLPHENIDATE PO SCH ×3 (08:03→20:38)
[2017-08-14] MEDS: ISOSORBIDE MONONITRATE ER 60 MG TAB.ER.24H PO SCH (08:03)
[2017-08-14] MEDS: ASPIRIN 325 MG TAB PO SCH (08:03)
[2017-08-14 11:31] LABS: Glucose,Whole Blood 183 mg/dL (75-99)
--- NOTE | 2017-08-14 11:34 | P.PN ---
Subjective Progress Note Date: 08/14/17 Principal diagnosis: dehydration Physical, nurses patient is still weak getting up, patient not eating well because he says he does not like the food. Objective - Vital Signs Vital signs: Vital Signs Temp 97.6 F 08/14/17 08:00 Pulse 85 08/14/17 08:00 Resp 22 08/14/17 08:00 BP 111/56 08/14/17 08:00 Pulse Ox 97 08/14/17 08:00 Intake & Output 08/13/17 08/14/17 08/14/17 18:59 06:59 18:59 Intake Total 780 Balance 780 Weight 63.503 kg 66.6 kg Intake: Intake, IV Titration 600 Amount Sodium Chloride 0.9% 1, 600 000 ml @ 75 mls/hr IV . [id number] Rx#:[id number] Oral 180 Other: Voiding Method Diaper Diaper Diaper # Voids 1 1 # Bowel Movements 2 1 - Exam gen:alert and oriented lungs:clear to auscultation heart:s1s2 abdomen:soft and depressible,non tender ext:no edema - Labs CBC & Chem 7: 08/14/17 05:41 08/14/17 05:41 Labs: Abnormal Lab Results - Last 24 Hours (Table) 08/13/17 08/13/17 08/13/17 Range/Units 11:55 16:46 21:02 WBC (3.8-10.6) k/uL RBC (4.30-5.90) m/uL Hgb (13.0-17.5) gm/dL Hct (39.0-53.0) % Potassium (3.5-5.1) mmol/L Chloride (98-107) mmol/L Glucose (74-99) mg/dL POC Glucose (mg/dL) 303 H 160 H 60 L (75-99) mg/dL Calcium (8.4-10.2) mg/dL 08/13/17 08/14/17 08/14/17 Range/Units 21:26 01:43 05:41 WBC 12.5 H (3.8-10.6) k/uL RBC 3.86 L (4.30-5.90) m/uL Hgb 11.6 L (13.0-17.5) gm/dL Hct 34.1 L (39.0-53.0) % Potassium (3.5-5.1) mmol/L Chloride (98-107) mmol/L Glucose (74-99) mg/dL POC Glucose (mg/dL) 73 L 134 H (75-99) mg/dL Calcium (8.4-10.2) mg/dL 08/14/17 08/14/17 08/14/17 Range/Units 05:41 05:48 06:06 WBC (3.8-10.6) k/uL RBC (4.30-5.90) m/uL Hgb (13.0-17.5) gm/dL Hct (39.0-53.0) % Potassium 3.1 L (3.5-5.1) mmol/L Chloride 109 H (98-107) mmol/L Glucose 41 L* (74-99) mg/dL POC Glucose (mg/dL) 51 L 58 L (75-99) mg/dL Calcium 7.8 L (8.4-10.2) mg/dL 08/14/17 Range/Units 06:22 WBC (3.8-10.6) k/uL RBC (4.30-5.90) m/uL Hgb (13.0-17.5) gm/dL Hct (39.0-53.0) % Potassium (3.5-5.1) mmol/L Chloride (98-107) mmol/L Glucose (74-99) mg/dL POC Glucose (mg/dL) 69 L (75-99) mg/dL Calcium (8.4-10.2) mg/dL Assessment and Plan (1) Dehydration Narrative/Plan: Improved Patient eating and drinking We'll discontinue IV fluids Current Visit: Yes Status: Acute Code(s): E86.0 - DEHYDRATION SNOMED Code( s): 19216722 (2) CAD (coronary artery disease) Narrative/Plan: No chest pain continue aspirin and imdur Current Visit: Yes Status: Acute Code(s): I25.10 - ATHSCL HEART DISEASE OF [place] CORONARY ARTERY W/O ANG PCTRS SNOMED Code(s): 99787335 (3) Hyperglycemia Narrative/Plan: resolved but now patient hypoglycemic will decrease lantus to 15 units Current Visit: Yes Status: Acute Code(s): R73.9 - HYPERGLYCEMIA, UNSPECIFIED SNOMED Code(s): 00579502 (4) Diabetes mellitus Narrative/Plan: patient had not been taking inuslin for 2 weeks now. He says that he read somewhere that he shouldnt use lantus and metformin,so he stopped on his own Current Visit: Yes Status: Acute Code(s): E11.9 - TYPE 2 DIABETES MELLITUS WITHOUT COMPLICATIONS SNOMED Code(s): 78729494 (5) Near syncope Current Visit: No Status: Acute Code(s): R55 - SYNCOPE AND COLLAPSE SNOMED Code(s): 137986569 (6) BPH (benign prostatic hyperplasia) Current Visit: Yes Status: Acute Code(s): N40.0 - BENIGN PROSTATIC HYPERPLASIA WITHOUT LOWER URINRY TRACT SYMP SNOMED Code(s): 860769859
[2017-08-14] MEDS ORDERED: POTASSIUM CHLORIDE ER 20 MEQ TAB.ER PO STA (11:38)
--- NOTE | 2017-08-14 13:12 | PN ---
PROGRESS NOTE Mr. Graham is an 87-year-old male who presented with symptoms of dizziness and presyncope. He has a history of coronary artery disease, status post coronary artery bypass grafting. He feels better today. His breathing is better. He is denying any symptoms of chest pain. He denies any dizziness or palpitation. He had an echocardiogram yesterday that revealed an ejection fraction of 50% to 55% with no significant valvular disease. On the monitor he continues to be in sinus mechanism with no evidence of tachy- or bradyarrhythmia. He continues to be at this time on aspirin once a day, insulin, isosorbide mononitrate 60 mg daily. PHYSICAL EXAMINATION: Blood pressure 104/50 with a heart rate in the the 60s. LUNGS: Clear. HEART: Regular rate and rhythm. S1, S2. No S3. No rub. ABDOMEN: Soft, nontender. EXTREMITIES: No edema. LAB DATA: BUN and creatinine of 18 and 0.8, potassium 3.1, hemoglobin of 11.6. IMPRESSION: 1. Episode of dizziness, probably related to orthostatic hypotension and vasovagal reaction. 2. Status post coronary artery bypass grafting, stable. 3. Diabetes mellitus. RECOMMENDATION: From the cardiac standpoint, he is stable. Will continue on present therapy. His potassium has been replaced. From the cardiac standpoint, I would expect he will be discharged home soon and follow up as an outpatient with Dr. Alex. SAMANTHA / ASHLEY: [id number] /
[2017-08-14 16:54] LABS: Glucose,Whole Blood 102 mg/dL (75-99)
[2017-08-14] MEDS: TAMSULOSIN 0.4 MG CAP.ER.24H PO SCH (20:38)
[2017-08-14 20:55] LABS: Glucose,Whole Blood 182 mg/dL (75-99)
[2017-08-14] MEDS: INSULIN DETEMIR 100 UNIT/ML 10 ML VIAL SQ SCH (21:34)
[2017-08-15 04:36] LABS: Glucose,Whole Blood 92 mg/dL (75-99)
[2017-08-15 06:01] LABS: Glucose,Whole Blood 86 mg/dL (75-99)
[2017-08-15] MEDS: INSULIN ASPART 100 UNIT/ML 1 ML 10 ML VIAL SQ SCH ×4 (06:17→21:00)
[2017-08-15 06:40] LABS: Blood Urea Nitrogen 15 mg/dL (9-20); Calcium 7.7 mg/dL (8.4-10.2); Carbon Dioxide 28 mmol/L (22-30); Glucose 81 mg/dL (74-99); Potassium 3.8 mmol/L (3.5-5.1); Sodium 142 mmol/L (137-145)
[2017-08-15 06:53] LABS: Anion Gap 7 mmol/L; Chloride 107 mmol/L (98-107)
[2017-08-15] MEDS: ISOSORBIDE MONONITRATE ER 60 MG TAB.ER.24H PO SCH (07:44)
[2017-08-15] MEDS: ASPIRIN 81 MG PO SCH (07:44)
[2017-08-15] MEDS: METHYLPHENIDATE PO SCH ×3 (07:45→20:23)
--- NOTE | 2017-08-15 08:24 | P.PN ---
Subjective Progress Note Date: 08/15/17 Principal diagnosis: dehydration No dizziness, no shortness of breath, nausea Objective - Vital Signs Vital signs: Vital Signs Temp 97.6 F 08/15/17 07:45 Pulse 85 08/15/17 07:45 Resp 16 08/15/17 07:45 BP 120/55 08/15/17 07:45 Pulse Ox 100 08/15/17 07:45 Intake & Output 08/14/17 08/15/17 08/15/17 18:59 06:59 18:59 Intake Total 480 50 Balance 480 50 Weight 67.5 kg Intake: Oral 480 50 Other: Voiding Method Diaper Diaper Diaper # Voids 1 2 # Bowel Movements 1 - Exam gen:alert and oriented lungs:clear to auscultation heart:s1s2 abdomen:soft and depressible,non tender ext:no edema - Labs CBC & Chem 7: 08/14/17 05:41 08/15/17 05:55 Labs: Abnormal Lab Results - Last 24 Hours (Table) 08/14/17 08/14/17 08/14/17 Range/Units 11:26 16:50 20:27 POC Glucose (mg/dL) 183 H 102 H 182 H (75-99) mg/dL Calcium (8.4-10.2) mg/dL 08/15/17 Range/Units 05:55 POC Glucose (mg/dL) (75-99) mg/dL Calcium 7.7 L (8.4-10.2) mg/dL Assessment and Plan (1) Hyperglycemia Narrative/Plan: Better Controlled now on 15 units of Lantus throughout the night no hypoglycemia We'll see how the treatment is given today with a lower dose Current Visit: Yes Status: Acute Code(s): R73.9 - HYPERGLYCEMIA, UNSPECIFIED SNOMED Code(s): 68607470 (2) Dehydration Narrative/Plan: Resolved Current Visit: Yes Status: Acute Code(s): E86.0 - DEHYDRATION SNOMED Code( s): 89590144 (3) CAD (coronary artery disease) Narrative/Plan: No chest pain continue aspirin and imdur Current Visit: Yes Status: Acute Code(s): I25.10 - ATHSCL HEART DISEASE OF [place] CORONARY ARTERY W/O ANG PCTRS SNOMED Code(s): 48559281 (4) Diabetes mellitus Narrative/Plan: As #1 Patient was given lower dose yesterday 15 units. No hypoglycemic episodes. Will evaluate glycemic control throughout the day with this lower dose. Current Visit: Yes Status: Acute Code(s): E11.9 - TYPE 2 DIABETES MELLITUS WITHOUT COMPLICATIONS SNOMED Code(s): 55548681 (5) Near syncope Current Visit: No Status: Acute Code(s): R55 - SYNCOPE AND COLLAPSE SNOMED Code(s): 822798280 (6) BPH (benign prostatic hyperplasia) Narrative/Plan: On Flomax Current Visit: Yes Status: Acute Code(s): N40.0 - BENIGN PROSTATIC HYPERPLASIA WITHOUT LOWER URINRY TRACT SYMP SNOMED Code(s): 992098295 Plan: Await social work evaluation for placement
[2017-08-15 11:39] LABS: Glucose,Whole Blood 123 mg/dL (75-99)
--- NOTE | 2017-08-15 13:22 | PN ---
PROGRESS NOTE Mr. Graham is an 87-year-old male with a history of coronary artery disease status post bypass grafting, who presented with dizziness and presyncope. He is doing well this morning. His breathing has been stable. He is not having any dizziness. No palpitation. He denies any nausea. He is ambulating without much difficulty. He continues to be at this time on aspirin, insulin, isosorbide mononitrate 60 mg daily. PHYSICAL EXAMINATION: Blood pressure 120/50 with a heart rate in the 60s. LUNGS: Clear. HEART: Regular rate and rhythm, S1, S2. No S3. No rub. ABDOMEN: Soft, nontender. EXTREMITIES: No edema. LAB DATA: Lab data revealed a BUN and creatinine of 15 and 0.7, potassium 3.8. IMPRESSION: 1. Episode of dizziness with presyncope probably related to vasovagal. 2. Status post coronary artery bypass grafting. 3. Diabetes mellitus. RECOMMENDATION: From the cardiac standpoint, he is stable. I would expect he should be able to be discharged home soon and follow up with Dr. Alex. We will see him on as needed basis. Please feel free to call us for any question. MMODL / IJN: [id number] /
[2017-08-15 17:15] LABS: Glucose,Whole Blood 209 mg/dL (75-99)
[2017-08-15 20:57] LABS: Glucose,Whole Blood 233 mg/dL (75-99)
[2017-08-15] MEDS: TAMSULOSIN 0.4 MG CAP.ER.24H PO SCH (20:59)
[2017-08-15] MEDS: INSULIN DETEMIR 100 UNIT/ML 10 ML VIAL SQ SCH (21:00)
[2017-08-15 23:24] VITALS: RESP 17
[2017-08-16] MEDS: INSULIN ASPART 100 UNIT/ML 1 ML 10 ML VIAL SQ SCH (06:37)
[2017-08-16 06:54] LABS: Glucose,Whole Blood 60 mg/dL (75-99)
[2017-08-16 07:35] LABS: Glucose,Whole Blood 89 mg/dL (75-99)
[2017-08-16] MEDS: METHYLPHENIDATE PO SCH (07:38)
[2017-08-16] MEDS: ISOSORBIDE MONONITRATE ER 60 MG TAB.ER.24H PO SCH (07:38)
[2017-08-16] MEDS: ASPIRIN 81 MG PO SCH (07:38)
[2017-08-16 07:43] VITALS: BP 145/66; PULSE 76; TEMP 97.6
[2017-08-16 11:47] LABS: Glucose,Whole Blood 162 mg/dL (75-99)
--- NOTE | 2017-08-18 15:05 | P.DS ---
Providers Date of admission: 08/12/17 13:49 Expected date of discharge: 08/16/17 Attending physician: Sandip Roberts MD Consults: 08/12/17 13:49 Consult Physician Urgent Consulting Provider: [facility] Consult Reason/Comments: Syncope Do you want consulting provider notified?: Yes Primary care physician: Espinoza Bartlett - Discharge Diagnosis(es) (1) Syncope and collapse Status: Acute (2) Dehydration Status: Acute (3) Diabetes mellitus Status: Acute (4) Hypokalemia Status: Acute (5) BPH (benign prostatic hyperplasia) Status: Acute (6) CAD (coronary artery disease) Status: Acute (7) Constipation Status: Acute (8) Abdominal aortic aneurysm (AAA) Status: Acute Hospital Course: The patient is a 87-year-old male with a past with a history of coronary disease with CABG type 2 diabetes and hypertension that was admitted and worked up for syncope found to be multifactorial secondary to vasovagal maneuver due to constipation superimposed on acute dehydration likely triggered by uncontrolled type 2 diabetes. While the patient was found to be orthostatic and also had elevated serum lactic acid and urinalysis with ketones and glucos, he was given IV fluid resuscitation and cardiology was consulted for further workup. His echocardiogram revealed ejection fraction of 50-55% with a mildly dilated left atrium. CT of his abdomen and pelvis was consistent constipation , with a bladder outlet obstruction due to his BPH with a mild abdomina aortic aneurysm measured at 3.3 cm with a thrombus on the posterior wall with no evidence of dissection that appeared similar to last exam. The patient responded well to IV fluid hydration, given his uncontrolled type 2 diabetes with hyperglycemia which was secondary to noncompliance as a patient had decided on his own to stop taking his insulin and metformin, His A1c was 10.7 He was started on sliding scale as well as Lantus 15 units subcu daily at bedtime which controlled his blood sugars. The patient's hypokalemia was addressed and he received potassium replacement, the patient's appetite gradually improved and he was tolerating a diabetic diet without further issues , he was seen by physical therapy and determined to be strong enough to be discharged back to [facility]. He was subsequently discharged in stable condition with a new prescription for Lantus 15 units subcu daily at bedtime, metformin 500 mg by mouth twice a day, Flomax 0.4 mg by mouth daily at bedtime. This discharge process took approximately 35 minutes Patient Condition at Discharge: Good Plan - Discharge Summary Discharge Rx Participant: No New Discharge Prescriptions: Continue Lactulose [Constulose] 10 gm PO BID PRN PRN Reason: Constipation Prevagen 1 cap PO DAILY Nitroglycerin Sl Tabs [Nitrostat] 0.4 mg SUBLINGUAL Q5M PRN PRN Reason: Angina Aspirin 81 mg PO DAILY Methylphenidate HCl [Methylphenidate ER] 20 mg PO TID Isosorbide Mononitrate ER [Imdur] 60 mg PO DAILY metFORMIN HCL [Glucophage] 500 mg PO BID #60 tab Tamsulosin HCl [Flomax] 0.4 mg PO HS #30 cap.er.24h Changed Insulin Glargine [Lantus] 15 unit SQ HS 30 Days #30 vial Discharge Medication List Lactulose [Constulose] 10 gm PO BID PRN 10/19/16 [History] Aspirin 81 mg PO DAILY 08/12/17 [History] Isosorbide Mononitrate ER [Imdur] 60 mg PO DAILY 08/12/17 [History] Methylphenidate HCl [Methylphenidate ER] 20 mg PO TID 08/12/17 [History] Nitroglycerin Sl Tabs [Nitrostat] 0.4 mg SUBLINGUAL Q5M PRN 08/12/17 [History] Prevagen 1 cap PO DAILY 08/12/17 [History] Insulin Glargine [Lantus] 15 unit SQ HS 30 Days #30 vial 08/16/17 [Rx] Tamsulosin HCl [Flomax] 0.4 mg PO HS #30 cap.er.24h 08/16/17 [Rx] metFORMIN HCL [Glucophage] 500 mg PO BID #60 tab 08/16/17 [Rx] Follow up Appointment(s)/Referral(s): Dexter Perez MD [STAFF PHYSICIAN] - 09/06/17 1:30 pm [facility], [NON-STAFF] - Espinoza Bartlett MD [Primary Care Provider] - 08/19/17 10:00 am (September 13 appointment kept at this time, along with new August 19 appointment.) Patient Instructions/Handouts: Syncope (DC), Hypoglycemia in a Person with Diabetes (DC), Diabetic Hyperglycemia (DC) Activity/Diet/Wound Care/Special Instructions: Please keep log of blood sugars to take to Dr. Bartlett's follow up appointment. Discharge Disposition: HOME SELF-CARE
== END 2017-08-16 13:25 | disposition home or self-care (01) | DRG 312 ==
LOC: EC 10:47 → 6SEL 13:49
PROVIDERS: ADMIT Internal Medicine; ATTEND Internal Medicine
DX: I95.1 Orthostatic hypotension (principal); E11.649 Type 2 diabetes mellitus with hypoglycemia without coma; E11.65 Type 2 diabetes mellitus with hyperglycemia; N13.8 Other obstructive and reflux uropathy; E86.0 Dehydration; G47.411 Narcolepsy with cataplexy; R00.1 Bradycardia, unspecified; J30.2 Other seasonal allergic rhinitis; E78.5 Hyperlipidemia, unspecified; Z66 Do not resuscitate; T38.3X6A Underdosing of insulin and oral hypoglycemic [antidiabetic] drugs, initial encounter; I10 Essential (primary) hypertension; I25.10 Atherosclerotic heart disease of native coronary artery without angina pectoris; E87.6 Hypokalemia; I71.4 Abdominal aortic aneurysm, without rupture; K21.9 Gastro-esophageal reflux disease without esophagitis; K59.00 Constipation, unspecified; Z91.128 Patient's intentional underdosing of medication regimen for other reason; N40.1 Benign prostatic hyperplasia with lower urinary tract symptoms; Z79.4 Long term (current) use of insulin; Z79.82 Long term (current) use of aspirin; Z79.899 Other long term (current) drug therapy; Z88.0 Allergy status to penicillin; Z95.1 Presence of aortocoronary bypass graft; Z87.891 Personal history of nicotine dependence; Z86.73 Personal history of transient ischemic attack (TIA), and cerebral infarction without residual deficits; Z95.5 Presence of coronary angioplasty implant and graft; Z87.11 Personal history of peptic ulcer disease; Z85.828 Personal history of other malignant neoplasm of skin; Z98.42 Cataract extraction status, left eye; Z98.41 Cataract extraction status, right eye; Z96.1 Presence of intraocular lens; Z90.49 Acquired absence of other specified parts of digestive tract; Z82.3 Family history of stroke; Z82.49 Family history of ischemic heart disease and other diseases of the circulatory system; Z80.9 Family history of malignant neoplasm, unspecified; W19.XXXA Unspecified fall, initial encounter; Y92.9 Unspecified place or not applicable; Y92.009 Unspecified place in unspecified non-institutional (private) residence as the place of occurrence of the external cause
CPT/HCPCS: 36415; 71046; 74177; 80048; 80053; 80061; 81003; 82009; 82550; 82553; 83036; 83605; 83735; 84484; 85025; 85027; 85610; 85730; 93005; 93306; 96361; 96374; 96376; 99285